=== PATIENT | female | born 1925 | race Caucasian/White ===

== ENCOUNTER 2016-11-05 16:34 | Inpatient (IN) ==
[2016-11-05] MEDS ORDERED: NUBAIN IV ONE (19:11)
[2016-11-05 19:27] LABS: BE 1.9 mmoll (-3.0-3.0); BLOOD TYPE ARTERIAL; DRAW SITE R BRACHIAL; METHB 0.6 % (0.0-1.5); O2(CT) 14.8 mL/dL (15.0-23.0); PCO2(98.6) 20 mmHg (35-45); PO2(98.6) 105 mmHg (60-100); SAMPLE BLOOD; SAO2 97.7 % (95.0-100.0); THB 10.8 g/dL (11.5-17.4)
[2016-11-05 19:30] LABS: MODALITY ROOM AIR; pH(98.6) 7.64 (7.35-7.45)
[2016-11-05 20:29] LABS: ALBUMIN 3.4 g/dL (3.5-5.0); POTASSIUM 4.3 mmol/L (3.5-5.1); TOTAL BILIRUBIN 0.7 mg/dL (0.20-1.00); TOTAL PROTEIN 6.6 g/dL (6.3-8.3)
--- NOTE | 2016-11-05 21:57 | HISTORY AND PHYSICAL ---
CHIEF COMPLAINT: Right-sided chest wall pain since last week and now swelling of left leg. HISTORY OF PRESENT ILLNESS: She is an 89-year-old, white female, was evaluated in my office last week for right sided chest wall pain. Got better with the Toradol. Now, she returned to the office today with left leg swelling and right-sided chest pain. Left leg is obviously swollen more than the right side. She had a history of injury 2 weeks ago and suspicious for DVT and thromboembolism. D-dimer was positive. Unfortunately, BUN and creatinine was high, unable to do CT angiogram tonight. I will go ahead and start some IV fluids and empirically started on Lovenox and pain control with Nubain. She is extremely tachycardic, hypoxic. ABG showed respiratory alkalosis without hypoxemia. After the creatinine comes back normal, we will attempt a CT pulmonary angiogram versus CT scan in the morning along with venous Dopplers in the left leg. As a result, hospital admission was warranted. PAST MEDICAL HISTORY: Paroxysmal atrial fibrillation, chronic lower back pain. History of gallstones with choledocholithiasis with stricture, status post ERCP and stent by Dr. Fiore. Hyperlipidemia, hypothyroidism, pyloric stenosis. Packs to the nasal bones, left frontal hemorrhage due to trauma of the Coumadin. History of subclavian syndrome. PAST SURGICAL HISTORY: Thyroid surgery, appendectomy, cholecystectomy, complete hysterectomy, bilateral cataract surgery. Bilateral bunionectomy, right ear tympanoplasty, and ERCP with stent. Right knee replacement. 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 Alonso. MEDICATIONS: Metoprolol 50 p.o. b.i.d., Tessalon 200 mg daily, Pravachol 40 daily. Hyzaar 50/12.5 daily, Synthroid 50 mcg daily. Lasix 40 mg Wednesday, Wednesday, Wednesday. Plavix 75 daily, probiotics as needed. [place] 7.5 daily. Restoril 15 daily. ALLERGIES: Not known. SOCIAL HISTORY: since 2014. Lives in [place]. No smoking. No alcohol. FAMILY HISTORY: Father of stomach cancer at 89. Mom of [place] at 89. HEALTH MAINTENANCE: Flu vaccine 2013. Pneumococcal 2011. Mammography 2012. Colonoscopy is declined. REVIEW OF SYSTEMS: HEENT: No headache. No vision problem. No earache. No sore throat. Neck: No goiter. No lymphadenopathy. No bruit. Cardiopulmonary: Right-sided chest pain on the back side. Respiratory: No shortness of breath, PND, orthopnea. GI: No nausea, vomiting, abdominal pain. : No history of hesitancy, frequency. Extremities: History of fall and swelling of left leg. Neurologic: No seizures, no weakness, no focal symptoms. PHYSICAL EXAMINATION: VITAL SIGNS: Stable. Tachycardic. Blood pressure is slightly high. 5 feet 3 inches, 142 pounds. HEENT: Atraumatic, normocephalic. Pupils equal, react to light. TMs are normal. Nose and throat within normal limits. NECK: Supple. No lymphadenopathy. No goiter. CHEST: Bilateral air entry. No rales, no wheezing. HEART: Sounds are tachycardic. BREASTS: Exam deferred. ABDOMEN: Belly is soft, nontender. Good bowel sounds. Median lower abdominal scar present. EXTREMITIES: Left leg is slightly swollen. Positive Homans sign. No signs of gangrene. Scars present on the right knee. NEURO EXAM: No obvious deficits noted. INVESTIGATIONS: CBC: Sedimentation rate is high. D-dimer is positive. ABG: pH is 7.64, pCO2 of 20, pO2 105. SMA-7 is normal except BUN 38, creatinine 1.6. ProBNP 3000 and cardiac enzymes were negative. In my office, the thoracic spine is unremarkable. Pacemaker device present. Calcifications noted in the abdominal aorta, status post stent in the biliary system. ASSESSMENT AND PLAN: 1. An 89-year-old, white female, admitted to the hospital with right-sided chest pain, left leg swelling, positive D-dimer. Suspicious for venous thromboembolism. Plan is venous Dopplers, CT pulmonary angiogram. 2. Azotemia. Hold Lasix, IV fluids. Follow up on SMA-7. 3. Empirical treatment with Lovenox twice daily. 4. Pain control with Nubain. 5. Gastrointestinal prophylaxis with IV Protonix. 6. Paroxysmal atrial fibrillation. On metoprolol 50 daily, Pacerone 200 daily. 7. Status post pacemaker. Warfarin was discontinued because of left frontal hemorrhage.. 8. Subclavian syndrome on the left side stable. 9. Biliary stricture, status post stent, ERCP. 10. History of pyloric stenosis, status post dilatation by Dr. Fiore. 11. Status post right knee replacement by Dr. Bennett. 12. Hypothyroidism, on Synthroid. 13. Hyperlipidemia, on pravastatin. 14. Chronic insomnia on temazepam. We will follow up on the pending laboratory workup based on the CT and venous Dopplers. Further recommendations will be followed. cc: Ben Kay MD
[2016-11-05] MEDS: SODIUM CHLORIDE 0.9% INJ SCH (22:10)
[2016-11-05] MEDS: PROTONIX IV SCH (22:10)
[2016-11-05] MEDS: NS 1,000 ML IV SCH (22:10)
[2016-11-05] MEDS: LOVENOX SUBQ SCH (22:10)
[2016-11-05] MEDS: NUBAIN IV PRN (23:13)
[2016-11-06 07:12] LABS: MANUAL DIFF NEEDED? NO
[2016-11-06 07:18] LABS: BASO% 0.1 % (0.0-0.8); EOS# 0.08 X1000 (0.0-0.7); HEMATOCRIT 33.4 % (37.0-47.0); HEMOGLOBIN 10.2 g/dL (12.0-16.0); IMM GRAN# 0.07 X1000 (0.0-0.04); IMM GRAN% 0.9 % (0.0-0.5); LYMPH# 3.43 X1000 (1.2-3.4); LYMPH% 44.3 % (20.5-51.1); MCH 27.2 PG (27-31); MCHC 30.5 g/dL (33-37); MCV 89.1 FL (81-99); MONO# 0.64 X1000 (0.11-0.59); MONO% 8.3 % (1.7-9.3); MPV 10.4 FL (7.4-10.4); NEUT% 45.4 % (42.2-75.2); PLT 269 X1000 (130-400); RBC 3.75 XMIL (4.2-5.4)
--- NOTE | 2016-11-06 07:19 | EKG Report ---
Test Performed on : 11/06/2016 06:55:20 AM Test Reason : cp Blood Pressure : / mmHG Vent. Rate : 097 BPM Atrial Rate : 078 BPM P-R Int : 000 ms QRS Dur : 098 ms QT Int : 384 ms P-R-T Axes : 000 011 -47 degrees QTc Int : 487 ms Atrial fibrillation. Nonspecific ST and T wave abnormality Abnormal ECG When compared with ECG of 10-MAR-2014 05:57, Atrial fibrillation. has replaced Atrial flutter. Incomplete right bundle branch block is no longer present Borderline criteria for Anterior infarct are no longer present Confirmed by Naif Banda MD ([id number]) on 11/06/2016 7:59:09 AM
[2016-11-06 07:20] LABS: INR 1.07; PROTIME 11.3 Seconds (9.2-11.7)
[2016-11-06 07:37] LABS: CALCIUM 8.6 mg/dL (8.8-10.2); POTASSIUM 4.3 mmol/L (3.5-5.1)
[2016-11-06] MEDS: CULTURELLE PO SCH (10:02)
[2016-11-06] MEDS: CORDARONE PO SCH (10:02)
[2016-11-06] MEDS: LOPRESSOR PO SCH ×2 (10:02→20:11)
[2016-11-06] MEDS: SYNTHROID PO SCH (10:03)
[2016-11-06] MEDS: LOVENOX SUBQ SCH (10:03)
[2016-11-06] MEDS: PLAVIX PO SCH (10:03)
[2016-11-06] MEDS: ZOSYN 2.25 GM/NS 2.25 GM/50 ML IVPB IV SCH ×3 (10:03→20:09)
[2016-11-06] MEDS: NS 1,000 ML IV SCH ×2 (10:04→20:10)
[2016-11-06] MEDS: NUBAIN IV PRN ×2 (10:06→20:18)
--- NOTE | 2016-11-06 11:46 | Diag Imaging Result Doc PS360 ---
EXAM: LUNG SCAN / VQ INDICATION: SOB TECHNIQUE: 39.8 mCi of aerosolized technetium 99 DTPA was administered for the ventilation portion of the scan. 6.1 mCi of technetium 99 MAA was administered intravenously for the perfusion portion of the scan. COMPARISON: None. FINDINGS: Attenuation due to the patient's cardiomegaly is causing a matched defect at the left lower lung zone. No other matched or unmatched perfusion defects are identified. The ventilation portion of the scan is essentially unremarkable. IMPRESSION: Low probability of pulmonary embolism. Electronically signed by Ruslan Otero 11/06/2016 11:44 AM
--- NOTE | 2016-11-06 11:59 | Diag Imaging Result Doc PS360 ---
EXAM: CHEST-2 VIEWS INDICATION: V-Q TECHNIQUE: 2 views COMPARISON: 12/25/2015 FINDINGS: The lungs are grossly clear. There is no definite pleural fluid collection. The heart is prominent similar to the previous study. There is a stable left-sided pacemaker. Central vasculature is unremarkable. IMPRESSION: Cardiomegaly. No definite acute pathology. Electronically signed by Ruslan Otero 11/06/2016 11:57 AM
--- NOTE | 2016-11-06 19:23 | PROGRESS NOTE ---
DATE: 11/06/2016 INTERVAL HISTORY: Patient's pain on the right side of the chest is better. No shortness of breath. Left leg is swollen. Venous Doppler was negative. Slight redness noted today. REVIEW OF SYSTEMS: No chest pain, shortness of breath.GI: No nausea, vomiting, abdominal pain. PHYSICAL EXAMINATION: Vital Signs: Stable, afebrile. General: The patient is not in respiratory distress. HEENT: Within normal limits. Neck: Supple. Chest: Clear to auscultation. Heart: Sounds are regular. Abdomen: Belly is soft, nontender. Good bowel sounds. Extremities: Left leg is swollen more than the right side. Positive Homans sign. INVESTIGATIONS: Positive D-dimer. Venous Dopplers were negative for DVT in the left leg consistent with cellulitis. Chest x-ray: Cardiomegaly with pacemaker. VQ scan was negative. LABS: CBC: White cell count 7.7, hematocrit 38, platelet 269. ESR is high. SMA-7: BUN 37, creatinine 1.5. Cardiac enzymes were negative. ASSESSMENT AND PLAN: 1. Azotemia. Continue IV hydration. Decrease IV fluids 50 mL an hour. If the creatinine is normal consider CT pulmonary angiogram. 2. Left leg swelled up. Venous Dopplers were negative. IV antibiotics. 3. Physical therapy. Out of the bed. 4. Reconcile home medications. Discussed the plan of the care. LEVEL OF DOCUMENTATION: 25 minutes. cc: Ben Kay MD
[2016-11-06] MEDS: SODIUM CHLORIDE 0.9% INJ SCH (20:11)
[2016-11-06] MEDS: PRAVACHOL PO SCH (20:11)
[2016-11-06] MEDS: PROTONIX IV SCH (20:15)
[2016-11-06] MEDS ORDERED: LOVENOX SUBQ SCH (21:00)
[2016-11-07] MEDS: NUBAIN IV PRN ×2 (00:21→23:34)
[2016-11-07] MEDS: ZOSYN 2.25 GM/NS 2.25 GM/50 ML IVPB IV SCH ×4 (02:09→19:56)
[2016-11-07 06:25] LABS: CALCIUM 8.8 mg/dL (8.8-10.2); POTASSIUM 4.7 mmol/L (3.5-5.1)
[2016-11-07] MEDS: SYNTHROID PO SCH (08:34)
[2016-11-07] MEDS: CULTURELLE PO SCH (08:34)
[2016-11-07] MEDS: CORDARONE PO SCH (08:34)
[2016-11-07] MEDS: LOPRESSOR PO SCH ×2 (08:35→20:00)
[2016-11-07] MEDS: PLAVIX PO SCH (08:36)
--- NOTE | 2016-11-07 09:51 | PROGRESS NOTE ---
DATE: 11/07/2016 SUBJECTIVE: The patient says her right scapular discomfort is much better. She did not really consider this as chest pain and says that it has been there before and comes and goes. She still has swelling in her left lower extremity but says that is even better. Her Doppler flow studies were negative for clots and her V/Q scan was low probability for blood clots in the lungs. She had no shortness of breath with this. I felt like this was most likely just a cellulitis. OBJECTIVE: Vital Signs: Blood pressure 124/63, respirations 16, pulse 77, temperature 97.7 degrees. HEENT: She is normocephalic intact PERRLA. Throat clear. Lungs: Clear to auscultation and percussion without rhonchi, rales, or wheezes. Heart: Regular rate and rhythm without murmurs, gallops, or friction rubs. Abdomen: Soft. Active bowel sounds without organomegaly or tenderness. Left lower extremity is swollen, most consistent with cellulitis. Neurological: Intact grossly. PLAN: We will continue IV antibiotics. cc: MD Ben Fernandez Jr, MD
--- NOTE | 2016-11-07 12:33 | Extremity Venous Study ---
PROCEDURE NAME: Venous U/S Left Leg - 11/06/2016 REFERRING PHYSICIAN: Dr. Kay. INTERPRETING PHYSICIAN: Dr. Landa. MECHANICAL DESIGN ENGINEER: Taylor. The patient has edema in the left leg and chest pain. The left lower extremity is imaged. The common femoral, superficial femoral, deep femoral, popliteal, posterior tibial, peroneal, greater saphenous are imaged. The right common femoral vein is imaged for comparison purposes. Doppler is used to evaluate the veins for spontaneity, phasicity, respiratory excursion, distal augmentation. All veins are compressible. Slight refluxing on the common femoral vein on the left. INTERPRETATION: No evidence of deep or superficial venous thrombosis in the left lower extremity veins identified. Minimal reflux noted on the left common femoral vein. cc: MD Ben Rodas MD
[2016-11-07] MEDS: NS 1,000 ML IV SCH (18:25)
[2016-11-07] MEDS: SODIUM CHLORIDE 0.9% INJ SCH (20:00)
[2016-11-07] MEDS: PRAVACHOL PO SCH (20:00)
[2016-11-07] MEDS: LOVENOX SUBQ SCH (20:02)
[2016-11-07] MEDS: PROTONIX IV SCH ×2 (20:05→21:24)
[2016-11-08] MEDS: ZOSYN 2.25 GM/NS 2.25 GM/50 ML IVPB IV SCH ×4 (01:24→19:54)
[2016-11-08 06:34] LABS: BASO% 0.2 % (0.0-0.8); EOS# 0.08 X1000 (0.0-0.7); EOS% 0.9 % (0.0-10.0); HEMATOCRIT 33.5 % (37.0-47.0); HEMOGLOBIN 9.9 g/dL (12.0-16.0); IMM GRAN# 0.04 X1000 (0.0-0.04); IMM GRAN% 0.4 % (0.0-0.5); LYMPH# 3.93 X1000 (1.2-3.4); LYMPH% 43.5 % (20.5-51.1); MANUAL DIFF NEEDED? YES; MCH 26.8 PG (27-31); MCHC 29.6 g/dL (33-37); MCV 90.5 FL (81-99); MONO# 1.17 X1000 (0.11-0.59); MPV 10.3 FL (7.4-10.4); PLT 238 X1000 (130-400)
[2016-11-08 06:37] LABS: CALCIUM 8.3 mg/dL (8.8-10.2); POTASSIUM 4.8 mmol/L (3.5-5.1)
[2016-11-08 07:22] LABS: LYMPHS 36 % (21-51); MONO 10 % (1-9)
[2016-11-08] MEDS: CULTURELLE PO SCH (08:01)
[2016-11-08] MEDS: CORDARONE PO SCH (08:01)
[2016-11-08] MEDS: PLAVIX PO SCH (08:01)
[2016-11-08] MEDS: LOPRESSOR PO SCH ×2 (08:01→20:00)
[2016-11-08] MEDS: SYNTHROID PO SCH (08:01)
[2016-11-08] MEDS: NS 1,000 ML IV SCH (10:11)
[2016-11-08] MEDS ORDERED: DULCOLAX PR ONE (10:57)
[2016-11-08] MEDS: MIRALAX PO SCH (11:11)
--- NOTE | 2016-11-08 11:51 | PROGRESS NOTE ---
DATE: 11/08/2016 SUBJECTIVE: The patient says she is feeling better but has not had a bowel movement in 4 or 5 days. OBJECTIVE: Vital Signs: Blood pressure is 143/54, respirations 16, pulse 77, temperature 97.8 degrees Fahrenheit. HEENT: She is normocephalic. EOMs intact. PERRLA. Throat clear. Lungs: Clear to auscultation and percussion without rhonchi, rales, or wheezes. Heart: Regular rate rhythm without murmurs, gallops, or friction rubs. Abdomen: Soft. Active bowel sounds. No organomegaly or tenderness. Extremities: Swelling of the left lower extremity seems to be going down a little bit. ASSESSMENT: 1. Cellulitis of left lower extremity. 2. Constipation. PLAN: Continue IV antibiotics. We will get her something for the constipation. cc: MD Ben Fernandez Jr, MD
[2016-11-08] MEDS: SODIUM CHLORIDE 0.9% INJ SCH (20:00)
[2016-11-08] MEDS: PRAVACHOL PO SCH (20:00)
[2016-11-08] MEDS: LOVENOX SUBQ SCH (20:00)
[2016-11-08] MEDS: PROTONIX IV SCH ×2 (20:11→20:36)
[2016-11-09] MEDS: ZOSYN 2.25 GM/NS 2.25 GM/50 ML IVPB IV SCH ×4 (02:25→21:00)
[2016-11-09] MEDS: NS 1,000 ML IV SCH (06:08)
[2016-11-09 06:40] LABS: MANUAL DIFF NEEDED? NO
[2016-11-09 06:46] LABS: BASO% 0.3 % (0.0-0.8); EOS# 0.11 X1000 (0.0-0.7); EOS% 1.4 % (0.0-10.0); HEMATOCRIT 32.1 % (37.0-47.0); HEMOGLOBIN 9.4 g/dL (12.0-16.0); IMM GRAN# 0.04 X1000 (0.0-0.04); IMM GRAN% 0.5 % (0.0-0.5); LYMPH# 3.44 X1000 (1.2-3.4); LYMPH% 44.6 % (20.5-51.1); MCH 26.6 PG (27-31); MCHC 29.3 g/dL (33-37); MCV 90.7 FL (81-99); MONO# 0.53 X1000 (0.11-0.59); MONO% 6.9 % (1.7-9.3); MPV 10.2 FL (7.4-10.4); NEUT% 46.3 % (42.2-75.2); PLT 255 X1000 (130-400); RBC 3.54 XMIL (4.2-5.4)
[2016-11-09] MEDS: CORDARONE PO SCH (08:26)
[2016-11-09] MEDS: LOPRESSOR PO SCH ×2 (08:27→21:01)
[2016-11-09] MEDS: PLAVIX PO SCH (08:27)
[2016-11-09] MEDS: SYNTHROID PO SCH (08:27)
[2016-11-09] MEDS: MIRALAX PO SCH (08:27)
[2016-11-09] MEDS: CULTURELLE PO SCH (08:27)
[2016-11-09] MEDS ORDERED: SALINE LOCK IV FLUID XX ONE (12:51)
[2016-11-09] MEDS: NUBAIN IV PRN (13:10)
--- NOTE | 2016-11-09 13:38 | PROGRESS NOTE ---
DATE: 11/09/2016 SUBJECTIVE: Patient says she is doing better overall. No specific complaints. OBJECTIVE: Vital Signs: Afebrile. Pulse 74, respiration 18, blood pressure 134/61, O2 saturation on room air 100%. CV: Irregularly irregular. Lungs: CTA. Abdomen: Nontender. Extremities: There is trace lower extremity edema on the left. No calf tenderness or cord. LABORATORIES: Show white count of 7.7, hemoglobin 9.4, platelets 255,000, sodium 139, potassium 4.8, chloride 105, CO2 21, BUN 26, creatinine 1.2. ASSESSMENT: 1. Cellulitis left lower extremity. 2. Constipation, improved with bowel movements x2. 3. Paroxysmal atrial fibrillation. 4. Hypothyroidism. PLAN: Continue IV Zosyn. Continue MiraLAX daily. Continue Plavix, amiodarone. Will discontinue IVF. Possible discharge tomorrow if she does well. cc: MD Ben Polanco MD
[2016-11-09] MEDS: PRAVACHOL PO SCH (21:01)
[2016-11-09] MEDS: SODIUM CHLORIDE 0.9% INJ SCH (21:01)
[2016-11-09] MEDS: PROTONIX IV SCH (21:01)
[2016-11-09] MEDS: LOVENOX SUBQ SCH (21:01)
[2016-11-10] MEDS: ZOSYN 2.25 GM/NS 2.25 GM/50 ML IVPB IV SCH ×2 (02:30→07:50)
[2016-11-10 05:59] LABS: MANUAL DIFF NEEDED? NO
[2016-11-10 06:11] LABS: BASO% 0.3 % (0.0-0.8); EOS# 0.14 X1000 (0.0-0.7); EOS% 1.6 % (0.0-10.0); HEMATOCRIT 33.5 % (37.0-47.0); HEMOGLOBIN 9.8 g/dL (12.0-16.0); IMM GRAN# 0.07 X1000 (0.0-0.04); IMM GRAN% 0.8 % (0.0-0.5); LYMPH# 3.89 X1000 (1.2-3.4); LYMPH% 43.2 % (20.5-51.1); MCH 26.6 PG (27-31); MCHC 29.3 g/dL (33-37); MONO# 0.81 X1000 (0.11-0.59); MPV 10.9 FL (7.4-10.4); NEUT% 45.1 % (42.2-75.2); PLT 256 X1000 (130-400); RBC 3.68 XMIL (4.2-5.4)
[2016-11-10 07:28] VITALS: BP 154/79
[2016-11-10] MEDS: LOPRESSOR PO SCH (07:59)
[2016-11-10] MEDS: CORDARONE PO SCH (07:59)
[2016-11-10] MEDS: CULTURELLE PO SCH (07:59)
[2016-11-10] MEDS: MIRALAX PO SCH (07:59)
[2016-11-10] MEDS: SYNTHROID PO SCH (08:00)
[2016-11-10] MEDS: PLAVIX PO SCH (08:00)
--- NOTE | 2016-11-11 09:05 | DISCHARGE SUMMARY ---
ADMISSION DATE: 11/05/2016 DISCHARGE DATE: 11/10/2016 DISCHARGING DIAGNOSES: 1. Left leg cellulitis. 2. Right-sided chest wall pain presumed to be musculoskeletal. 3. Paroxysmal atrial fibrillation chronic lower back pain. 4. History of biliary stricture status post endoscopic retrograde cholangiopancreatography and stent. 5. Hyperlipidemia. 6. Hypothyroidism. 7. Pyloric stenosis, stable. 8. History of subclavian syndrome. BRIEF HISTORY: Please see the H and P that was done on 11/05/2016. In brief, she is an 89-year- old white female admitted to the hospital with shortness of breath, right-sided chest pain associated with left leg swelling which is a discrepancy with the right leg. D- dimer was positive. High risk for possible thromboembolism. HOSPITAL COURSE: At the time of presentation BUN and creatinine were high. Unable to do CT pulmonary angiogram. The patient had venous Dopplers that were negative for deep vein thrombosis. VQ scan was negative. Clinical picture is not compatible with pulmonary embolism. She was given pain medicine for the right-sided chest wall pain which is improved. It looks like more musculoskeletal. Previous x-rays in my office, chest x-ray and x-ray of the T- spine were unremarkable. The patient was started on IV antibiotics and elevation and the left leg swelling is much improved. LABORATORIES: At the time of discharge as follows. CBC: White cell count 9, hematocrit 33, platelets 256,000. SMA 7: Sodium 139, potassium 4.8, chloride 105, BUN 26, creatinine 1.2. Chest x-ray stable. No acute chest pathology noted. V/Q scan is negative. DISCHARGE INSTRUCTIONS: Lopressor 50 p.o. b.i.d., Pacerone 200 daily, pravastatin 40 daily, Hyzaar 50/12.5 daily, Synthroid 50 mcg daily. Lasix 40 on Wednesday, Wednesday, Wednesday. Plavix 75 daily, Culturelle 1 tablet daily, albumin 875 p.o. b.i.d., and follow up in my office next week. cc: MD MARYANN Luevano
== END 2016-11-10 09:13 | disposition home or self-care (01) ==
LOC: DIRADM 16:34 → 3N 18:04
PROVIDERS: ADMIT Internal Medicine; ATTEND Internal Medicine

== ENCOUNTER 2016-11-22 10:55 | Inpatient (IN) ==
[~2016-11-22 10:55] MED LIST: QUELICIN ONE
[2016-11-22] MEDS ORDERED: NS 1,000 ML IV ONE ×2 (10:59→14:36)
[2016-11-22] MEDS ORDERED: NS 2,000 ML ONE (11:00)
[2016-11-22 11:09] LABS: MANUAL DIFF NEEDED? NO
[2016-11-22] MEDS ORDERED: NARCAN IV ONE (11:13)
[2016-11-22 11:14] LABS: BASO% 0.2 % (0.0-0.8); EOS# 0.14 X1000 (0.0-0.7); EOS% 1.6 % (0.0-10.0); HEMOGLOBIN 9.5 g/dL (12.0-16.0); IMM GRAN# 0.05 X1000 (0.0-0.04); IMM GRAN% 0.6 % (0.0-0.5); LYMPH# 2.98 X1000 (1.2-3.4); LYMPH% 33.6 % (20.5-51.1); MCH 25.8 PG (27-31); MCHC 29.7 g/dL (33-37); MONO# 0.87 X1000 (0.11-0.59); MONO% 9.8 % (1.7-9.3); MPV 11.1 FL (7.4-10.4); NEUT% 54.2 % (42.2-75.2); PLT 293 X1000 (130-400); RBC 3.68 XMIL (4.2-5.4)
[2016-11-22] MEDS ORDERED: LEVOPHED 8 MG in D5 1/2 NS 250 ML IV SCH ×2 (11:15→12:00)
[2016-11-22 11:20] LABS: ALLEN TEST NO; BE -3.6 mmoll (-3.0-3.0); BLOOD TYPE ARTERIAL; DRAW SITE R BRACHIAL; O2(CT) 9.7 mL/dL (15.0-23.0); PCO2(98.6) 26 mmHg (35-45); PO2(98.6) 95 mmHg (60-100); SAMPLE BLOOD; SAO2 100.3 % (95.0-100.0); THB 6.9 g/dL (11.5-17.4); pH(98.6) 7.48 (7.35-7.45)
[2016-11-22 11:21] LABS: MODALITY CANNULA
[2016-11-22 11:31] LABS: ALBUMIN 3.2 g/dL (3.5-5.0); CALCIUM 7.9 mg/dL (8.8-10.2); POTASSIUM 4.7 mmol/L (3.5-5.1); TOTAL BILIRUBIN 0.51 mg/dL (0.20-1.00); TOTAL PROTEIN 5.7 g/dL (6.3-8.3)
[2016-11-22 11:44] LABS: URINE MICRO REVIEW NEEDED? NO; URINE SOURCE CATH
[2016-11-22 11:47] LABS: BILIRUBIN URINE NEGATIVE (NEGATIVE); BLOOD URINE NEGATIVE (NEGATIVE); COLOR YELLOW; GLUCOSE URINE NEGATIVE (NEGATIVE); LEUKOCYTES URINE SMALL (NEGATIVE); NITRITE URINE NEGATIVE (NEGATIVE); PROTEIN URINE TRACE mg/dL (NEGATIVE); SP GRAVITY URINE 1.017; TURBIDITY URINE HAZY (CLEAR); UR EPITHELIAL CELLS <10 /HPF (<10); URINE BACTERIA 4+ /HPF; URINE CULTURE NEEDED? YES; URINE RBC <10 /HPF (<10); UROBILINOGEN URINE NORMAL (NORMAL)
[2016-11-22 11:54] LABS: INR 1.1; PROTIME 11.6 Seconds (9.2-11.7); PTT 27.7 Seconds (22.0-36.0)
--- NOTE | 2016-11-22 11:54 | Diag Imaging Result Doc PS360 ---
EXAM: CHEST-PORTABLE HISTORY: AMS TECHNIQUE: Portable upright AP COMPARISON: 11/06/2016 FINDINGS: Poor inspiratory effort. The heart is prominent. The vessels are not distended. No pneumonia. There is a left-sided pacemaker. IMPRESSION: Mild cardiomegaly Electronically signed by Kumar Doyle 11/22/2016 11:52 AM
[2016-11-22] MEDS: ROCEPHIN 2 GM/NS 2 GM/50 ML IVPB IV SCH (12:00)
--- NOTE | 2016-11-22 12:01 | PROVIDER DOCUMENTATION ---
This chart was entered by Gely Royal Scribe, acting as scribe for Ruslan Mora PA. HPI-General Adult - General Chief Complaint: Altered Mental Status Stated Complaint: LETHARGIC Time Seen by Provider: 11/22/16 10:57 Source: patient, EMS Unable to obtain history due to:: altered Allergies/Adverse Reactions: Patient Allergies Allergy/AdvReac Type Severity Reaction Status Date / Time morphine Allergy Intermediate SWELLING Verified 05/23/15 21:07 ciprofloxacin [From Cipro] Allergy Unknown Unknown Verified 05/23/15 21:07 ciprofloxacin HCl * Allergy Unknown Unknown Verified 05/23/15 21:07 [From Cipro] Home Medications: Home Medication List Medication Instructions Recorded Confirmed Last Taken Type Amiodarone HCl [Pacerone] 200 mg PO DAILY 04/05/12 11/05/16 11/05/16 09:00 History Metoprolol [Lopressor] 50 mg PO BID 04/05/12 07/05/15 07/04/15 History Levothyroxine Sodium 50 mcg PO QAM 03/09/14 11/05/16 11/05/16 09:00 History Losartan/Hydrochlorothiazide 1 each PO DAILY 03/09/14 11/05/16 11/05/16 09:00 History [Losartan-Hctz 50-12.5 mg Tab] PRAVAstatin [Pravachol] 40 mg PO QHS 03/09/14 11/05/16 11/05/16 09:00 History Furosemide 40 mg PO MOWEFR 04/07/14 11/05/16 07/03/15 History Clopidogrel Bisulfate [Plavix] 75 mg PO DAILY 05/07/15 11/05/16 11/05/16 09:00 History Lactobacillus Rhamnosus GG 1 each PO DAILY #30 capsule 07/09/15 Unknown Rx [Culturelle] Amoxicillin/Potassium Clav 1 each PO BID #14 tablet 11/10/16 Unknown Rx [Augmentin 875-125 Tablet] - History of Present Illness -Gen Adult Nature of Presenting Problems: 89 yo F presents to the ER with complaint of lethargy and hypotension. Pt was found in a room at [facility], lethargic and not answering questions. Upon arrival pt's BP is 50/30. Pt is moaning and muttering words, saying "she wants to go home". EMS reports no one at [facility] knew her history, pt has no family other than a sister. Onset/Duration: reports: unsure Review of Systems - Adult - REVIEW OF SYSTEMS - ADULT ROS:: unobtainable per condition Constitutional: denies: chills, fever Eyes: reports: no symptoms reported Ears, Nose, Mouth & Throat: reports: no symptoms reported Cardiovascular: reports: no symptoms reported Respiratory: denies: cough, wheezing Gastrointestinal: denies: diarrhea, vomiting Genitourinary: reports: no symptoms reported Musculoskeletal: reports: no symptoms reported Integumentary: reports: no symptoms reported Neurological: reports: no symptoms reported Psychiatric: reports: no symptoms reported Endocrine: reports: no symptoms reported Hematologic/Lymphatic: reports: no symptoms reported Allergic/Immunologic: reports: no symptoms reported All Other Systems: Reviewed and Negative Past History - Adult - PAST MEDICAL HISTORY-ADULT Review of Records: reports: Nursing Assessment Review, Medications Reviewed Cardiovascular: reports: A-Fib, HTN Musculoskeletal: reports: arthritis Endocrine/Immune: reports: thyroid disorder - PRIOR SURGERIES/PROCEDURES Surgical/Procedure History: reports: appendectomy, cholecystectomy, tonsillectomy, joint replacement - IMMUNIZATION STATUS Childhood Immunizations: See Nurse Assessment Flu Vaccine: See Nurse Assessment Physical Exam-General - PHYSICAL EXAM-ADULT Initial Vital Signs Reviewed: Yes - CONSTITUTIONAL General Appearance: lethargic, slow to respond - EYES Eyes: pink conjunctivae, other (pinpoint pupils). negative: PERRL/EOMI - HEAD, EARS, NOSE, MOUTH & THROAT HENMT: normocephalic/atraumatic, normal ENT inspection - NECK Neck: supple, normal inspection - RESPIRATORY Respiratory: lungs clear, no respiratory distress, no accessory muscle use - CARDIOVASCULAR Cardiovascular: normal peripheral pulses, regular rate, rhythm - GASTROINTESTINAL (ABDOMEN) Abdominal Exam: soft, tenderness (mild, suprapubic) - MUSCULOSKELETAL Extremity: normal range of motion, normal inspection Peripheral Pulses: radial (R): 2+, radial (L): 2+, carotid (R): 2+, carotid (L) : 2+, femoral (R): 2+, femoral (L): 2+, dorsalis-pedis (R): 2+, dorsalis-pedis ( L): 2+ - SKIN Integumentary: normal color, warm/dry Progress - PLAN OF CARE/RESULTS Progress/Plan/Lab Results: Orders Category Date Time Status Cardiac Monitoring DIRECTED Care 11/22/16 10:57 Active Finger Stick Blood Sugar (ED) DIRECTED Care 11/22/16 10:57 Active Oxygen Therapy- ED Nursing DIRECTED Care 11/22/16 10:57 Active Saline Loc NOW Care 11/22/16 10:57 Active CHEST-PORTABLE [RAD] Stat Exams 11/22/16 10:57 Ordered HEAD W/O CONTRAST [CT] Stat Exams 11/22/16 10:58 Ordered ABG [RESP] Routine Lab 11/22/16 10:57 Ordered ALCOHOL BLOOD Stat Lab 11/22/16 11:00 Received CBC WITH ELECTRONIC DIFF [HEME] Stat Lab 11/22/16 11:00 Received CK PROFILE [SP CHEM] Stat Lab 11/22/16 11:00 Received COMPREHENSIVE METABOLIC PANEL [CHEM] Stat Lab 11/22/16 11:00 Received LACTATE, PLASMA [CHEM] Stat Lab 11/22/16 10:57 Uncollected PROTIME WITH INR [COAG] Stat Lab 11/22/16 11:03 Ordered PTT [COAG] Stat Lab 11/22/16 11:03 Ordered TROPONIN T Stat Lab 11/22/16 11:00 Received URINALYSIS W/POSS RFLX CULT-1 [URINALYSIS] Stat Lab 11/22/16 10:57 Uncollected URINE DRUG SCREEN Stat Lab 11/22/16 10:57 Uncollected 0.9% Sodium Chloride Inj [Ns] 1,000 ml Med 11/22/16 11:00 Discontinued .ROUTE As Directed 0.9% Sodium Chloride Inj [Ns] 1,000 ml Med 11/22/16 10:59 Active IV 999 mls/hr Dextrose 5%-0.45% NaCl Inj [D5 1/2 Ns] 250 ml Med 11/22/16 12:00 Active Norepinephrine [Levophed] 8 mg IV As Directed Succinylcholine [Quelicin] Med 11/22/16 10:51 Discontinued 200 mg .ROUTE .STK-MED ONE Pulse Oximetry Stat Oth 11/22/16 10:57 Active EKG [EKG] Stat Ther 11/22/16 10:57 Ordered 1110 - Limited bedside ultrasound performed by Ruslan Mora showed low EF and IVC collapsed Result Diagrams: 11/22/16 11:00 11/22/16 11:00 - REASSESSMENT Reassessment #1 Time Reassessed: 13:27 (Pt blood pressure is 114/84. She is more responsive. States she remembers going to [facility] this morning but does not remember anything after arriving at [facility]. CT scans pending. Plan to admit after radiology reads CT.) - EKG 1 Time of EKG reading by physician:: 11:01 EKG Read and Signed by:: Belkis Stokes EKG Interpretation (*Must complete 3 of following elements*): Abnormal Rate: 67 Rhythm: a-fib with frequent ventricular paced complexes [place]: normal QRS: normal MN Interval: normal ST Wave: non-specific ST changes - XRAY 1 XRAY Study: Chest Impression: Abnormal (mild cardiomegaly, per radiologist) - CT/MRI 1 CT Study: Head Impression: Normal (no hemorrhage, mild atrophy, chronic L sphenoid sinusitis. Per radiologist) 2 CT Study: Abdomen, Pelvis, Thorax Impression: Abnormal (cardiomegaly with mild pulmonary edema and tiny effusions. cholecystectomy with biliary stent. prominent arterosclerosis. constipation. diverticulosis. hysterectomy. left ovarian cyst. per radiologist) - CONSULTS/PCP/HOSPITALIST Notification #1 *Consult/PCP/Hospitalist*: Dr. Kimble (house calls nurse practitioner for Dr. Kay) Time Discussed: 14:30 (Write transition orders to the ICU. ) Departure - Departure Date of Disposition Decision: 11/22/16 Time of Disposition Decision: 14:31 DIAGNOSIS: Syncopal episodes Qualifiers: Syncope type: unspecified Qualified Code(s): R55 - Syncope and collapse Hypotension Qualifiers: Hypotension type: unspecified hypotension type Qualified Code(s): I95.9 - Hypotension, unspecified UTI (urinary tract infection) Qualifiers: Urinary tract infection type: site unspecified Hematuria presence: without hematuria Qualified Code(s): N39.0 - Urinary tract infection, site not specified Disposition: ADMITTED INPATIENT 09 Certified Medical Emergency: Emergent Condition: Stable Referrals and Follow-Ups: Oliva Kay MD [Primary Care Provider] - - Critical Care Note This patient required my direct & personal management of CC.: No Attestation - Physician/ FREDRICK Attestation Patient care was provided by Advanced Practice Provider:: Yes Advanced Practice Provider:: Ruslan Mora Advanced Practice Provider documentation review:: The Mid-level provider documentation, treatment plan and medical decision making was reviewed by the physician who agrees with all treatment and medical decision making by the MLP. The physician spent face to face time with patient:: Yes Advanced Practice Provider documentation review:: The physician spent face to face time with this patient and agrees with all MLP documentation, treatment, and medical decision making by the MLP. See provider notes for further information. This chart was documented by the indicated scribe, (Gely Royal Scribe) and accurately reflects the services I performed and decisions made by me, Ruslan Mora PA, as attested by the provider's signature.
[2016-11-22 12:06] LABS: UR AMPHETAMINES QUAL NONE DETECTED (NONE DETECT); UR BARBITUATES QUAL NONE DETECTED (NONE DETECT); UR BENZODIAZEPIN QUAL PRESUMPTIVE POSITIVE (NONE DETECT); UR CANNABINOIDS QUAL NONE DETECTED (NONE DETECT); UR COCAINE QUAL NONE DETECTED (NONE DETECT); UR METHADONE QUAL NONE DETECTED (NONE DETECT); UR OPIATES QUAL NONE DETECTED (NONE DETECT); UR OXYCODONE QUAL PRESUMPTIVE POSITIVE (NONE DETECT); UR PCP QUAL NONE DETECTED (NONE DETECT)
[2016-11-22] MEDS ORDERED: ROCEPHIN ONE (12:11)
--- NOTE | 2016-11-22 13:28 | Diag Imaging Result Doc PS360 ---
EXAM: HEAD W/O CONTRAST HISTORY: AMS TECHNIQUE: COMPARISON: 12/27/2014 FINDINGS: No parenchymal hemorrhage. No epidural or subdural hematoma. No subarachnoid hemorrhage. No mass identified on this noncontrasted exam. No hydrocephalus. Mild atrophy. Near-complete opacification of the left sphenoid sinus.. IMPRESSION: No hemorrhage. Mild atrophy. Chronic left sphenoid sinusitis. Electronically signed by Kumar Doyle 11/22/2016 1:25 PM
--- NOTE | 2016-11-22 13:39 | Diag Imaging Result Doc PS360 ---
EXAM: THORAX/ABDOMEN/PELVIS W/O CONT HISTORY: CP/ABD pain/AMS TECHNIQUE: Dose reduction technique COMPARISON: Abdomen and pelvis is compared to 03/08/2014 FINDINGS: Chest: Trace pleural fluid. The heart is enlarged. No thoracic aortic aneurysm. Moderate atherosclerosis. There are small mediastinal lymph nodes. Patient has a left-sided pacemaker. Mild vascular distention. No consolidation. There is basilar atelectasis Abdomen and pelvis: A stent is found in the common bile duct. The gallbladder has been removed. There is at least mild to moderate intrahepatic biliary dilatation. Spleen is not enlarged. Normal noncontrasted pancreas. Normal adrenal glands. Kidneys are mildly atrophic. No renal stones. No hydronephrosis. Prominent atherosclerosis. No bowel obstruction. No inflammation about the cecum. There is stool throughout the colon. No abscess. No free air. The uterus is been removed. A Foy catheter has the urinary bladder decompressed. A 3 cm cyst arises from the left ovary. There are scattered diverticula. IMPRESSION: Chest: Cardiomegaly with mild pulmonary edema and tiny effusions Abdomen and pelvis: 1.Cholecystectomy with a biliary stent 2.Prominent atherosclerosis 3.Constipation 4.Diverticulosis 5.Hysterectomy 6.Left ovarian cyst Electronically signed by Kumar Doyle 11/22/2016 1:37 PM
[2016-11-22] MEDS ORDERED: NARCAN ONE (14:00)
[2016-11-22] MEDS ORDERED: NS ONE (14:00)
[2016-11-22] MEDS ORDERED: EPINEPHRINE SYRINGE ONE (14:00)
--- NOTE | 2016-11-22 18:44 | HISTORY AND PHYSICAL ---
HISTORY OF PRESENT ILLNESS: Ms. Andrade who is an 89-year-old white female with a known case of hypertension, was brought to the emergency room after she became very drowsy and passed out at [facility]. She almost had a syncopal episode. She was feeling fine this morning and suddenly became very drowsy in [facility]. When she came to the emergency room she was very hypotensive. Systolic blood pressure was 50. After initial management with IV fluids and a short course of Levophed her mental status improved. Blood pressure improved also. She is in and out of atrial fibrillation. She has a permanent pacemaker. She had hypertension. She denies having any definite heart attack. During her last admission she had small bowel obstruction. She had a biliary stent placed in by Dr. Fiore for biliary stricture. PAST MEDICAL HISTORY: She had a permanent pacemaker put in. Besides this, she had a hysterectomy. She had a total knee replacement on the left side which she he injured the right knee, is normal. She has history of urinary tract infection and during the last admission, according to her, she had an infection in the leg. She also had a ruptured appendix when she was 18 years old. Thereafter she had hysterectomy later on. She was in lot of pain with the scar tissue. SOCIAL HISTORY: She is a nonsmoker. She drank in early life. She was not an alcoholic. MEDICATIONS: Medications she takes at home include amiodarone 200 mg daily, amoxicillin with potassium clavulanate, Augmentin b.i.d. she has been on clopidogrel 75 mg daily, furosemide 40 mg daily, lactobacillus , levothyroxine, losartan hydrochloride 50/12.5, metoprolol, pravastatin 40 mg daily. REVIEW OF SYSTEMS: Really noncontributory except that she has fallen on the left knee. Review of systems otherwise unremarkable. PHYSICAL EXAMINATION: VITAL SIGNS: At present her vital signs reveal temperature normal, pulse 74 per minute, respiratory rate 22 per minute, blood pressure 134/87. HEENT: Head normocephalic. Pupils PERRLA. Fundus examination could not be done. ENT examination unremarkable. NECK: Supple. JVP normal. There is no evidence of lymphadenopathy, thyroid enlargement. EXTREMITIES: There is no evidence of pedal edema, calf tenderness, anemia, cyanosis, or clubbing. Pedal pulses well felt. BREASTS: Exam not done. CHEST: Normal inspection. Reveals a pacemaker generator in the left clavicle. LUNGS: Clear on auscultation. CARDIOVASCULAR: PMI in the normal position. Heart sounds normal. No murmur, gallop, or rub noted. ABDOMEN: Nondistended. Reveals a scar from previous surgery. No guarding, rigidity, free fluid, masses, or organomegaly. Bowel sounds normal. RECTAL: Deferred. ADVERTISING DIRECTOR: Higher functions: Patient is alert and oriented. Cranial nerves normal. Motor and sensory system examination unremarkable. Deep tendon reflexes normal. Plantars downgoing. Skull and spine examination normal for age. She has a lipoma in her mid dorsal area on the right side, interscapular area. There are no cerebellar signs or signs of meningeal irritation. LOCOMOTOR EXAM: Unremarkable. SKIN EXAM: Unremarkable except for swelling of the left knee. IMPRESSION AND PLAN: The patient became syncopal and very hypotensive when she came to the emergency room. She has a history of hypertension, sick sinus syndrome, and history of biliary stricture with a stent put in there. Had left knee replacement which the knee appears to be slightly injected and swollen. We will x-ray the knee. Continue the current management and watch her. Cultures have been done. Her CBC reveals a normal white count. Hemoglobin is 9.5. Blood gases are satisfactory. Chemistries normal except that her BUN is 59 and creatinine is 2.4, indicating dehydration and possibly mild renal failure. Plan to continue the IV fluids and repeat the lab data in the morning. cc: MD Ben Sharma MD
[2016-11-22] MEDS ORDERED: SODIUM CHLORIDE 0.9% INJ SCH (19:30)
--- NOTE | 2016-11-22 19:57 | Diag Imaging Result Doc PS360 ---
EXAM: KNEE 1-2 VIEWS-LEFT HISTORY: pain swelling TECHNIQUE: Two views COMPARISON: None. FINDINGS: There is been prior orthopedic replacement of the knee. No evidence of loosening. Prominent atherosclerosis. Deformity to the proximal fibula believed to be an old injury. IMPRESSION: No definite acute bony abnormality. Electronically signed by Kumar Doyle 11/22/2016 7:54 PM
[2016-11-22] MEDS: LOVENOX SUBQ SCH (20:30)
[2016-11-22] MEDS: PROTONIX IV SCH (20:30)
[2016-11-23 06:53] LABS: MANUAL DIFF NEEDED? NO
--- NOTE | 2016-11-23 07:07 | EKG Report ---
Test Performed on : 11/22/2016 11:01:01 AM Test Reason : AMS Blood Pressure : / mmHG Vent. Rate : 067 BPM Atrial Rate : 069 BPM P-R Int : 000 ms QRS Dur : 094 ms QT Int : 440 ms P-R-T Axes : 000 003 000 degrees QTc Int : 464 ms Atrial fibrillation. with frequent ventricular-paced complexes Nonspecific ST abnormality Abnormal ECG When compared with ECG of 06-NOV-2016 06:55, Electronic ventricular pacemaker has replaced Atrial fibrillation. Unconfirmed Result
[2016-11-23 07:13] LABS: BASO% 0.2 % (0.0-0.8); EOS# 0.15 X1000 (0.0-0.7); EOS% 2.4 % (0.0-10.0); HEMOGLOBIN 9.4 g/dL (12.0-16.0); IMM GRAN# 0.02 X1000 (0.0-0.04); IMM GRAN% 0.3 % (0.0-0.5); LYMPH% 50.4 % (20.5-51.1); MCH 25.7 PG (27-31); MCHC 29.4 g/dL (33-37); MCV 87.4 FL (81-99); MONO# 0.39 X1000 (0.11-0.59); MONO% 6.1 % (1.7-9.3); MPV 10.8 FL (7.4-10.4); NEUT% 40.6 % (42.2-75.2); PLT 254 X1000 (130-400); RBC 3.66 XMIL (4.2-5.4)
[2016-11-23 07:45] LABS: CALCIUM 7.8 mg/dL (8.8-10.2); POTASSIUM 4.3 mmol/L (3.5-5.1)
--- NOTE | 2016-11-23 09:45 | PROGRESS NOTE ---
DATE: 11/23/2016 ROOM: ICU 6. LEVEL OF DOCUMENTATION: Is 35 minutes. SUBJECTIVE: The chart was reviewed and patient has been admitted to the hospital with syncope while she was at [facility]. She was hypotensive, bradycardic. She had a pacemaker with intermittent atrial fibrillation. She is not a candidate for anticoagulation because of the previous head injury and subdural hematoma. She was recently discharged from the hospital with left leg cellulitis, swelling and right-sided chest pain. Further workup, VQ was negative. 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 Blood pressure is usually low. She was started on IV fluids and IV vasopressors. Patient is feeling better. REVIEW OF SYSTEMS: HEENT: No headache. No vision problem. No earache. No sore throat. Neck: No neck pain. Cardiopulmonary: No chest pain, shortness of breath, PND, orthopnea. GI: No nausea, vomiting, abdominal pain. Extremities: Swelling of feet is improving. No joint pains. PAST MEDICAL HISTORY, PAST SURGICAL HISTORY, MEDICINES: Were reviewed. PHYSICAL EXAMINATION: Vitals: She is afebrile. Vitals are now stable, 146/90 on 2 L of oxygen nasal cannula 100%. HEENT: Atraumatic, normocephalic. Pupils equal, react to light. Nose and throat within normal limits. Neck: Supple. No lymphadenopathy. JVD is normal. Chest: Bilateral air entry. Heart: Sounds are regular and distant. Abdomen: Belly is soft, nontender. Good bowel sounds. Extremities: No peripheral edema. Slightly rotated on the left side. Neurologic: Nonfocal. INVESTIGATIONS: CBC: White cell count 6.3, hematocrit 32, platelets 254. ABG: PH is 7.48, pCO2 of 26, pO2 of 95. SMA-7: Sodium 142, potassium 4.3, chloride 104, BUN 40, creatinine 1.6. Urinalysis positive for infection with gram-negative rods. ASSESSMENT: 1. Syncope due to hypotension. Etiology to be determined. 2. Acute kidney injury due to hypotension, improving. 3. Paroxysmal atrial fibrillation on Cordarone and Plavix. 4. Hypothyroidism on Synthroid. 5. Hyperlipidemia on Pravachol. 6. Left subclavian steal syndrome. Do not take the blood pressure on the left side. PLAN: 1. DVT prophylaxis with Lovenox. 2. GI prophylaxis with Protonix. 3. Check the orthostatic blood pressure. 4. Will transfer to the ICU in a stepdown unit and reconcile home medications. Please see the transfer orders. cc: eBn Kay MD
[2016-11-23] MEDS: ROCEPHIN 2 GM/NS 2 GM/50 ML IVPB IV SCH (12:02)
[2016-11-23] MEDS: PROTONIX IV SCH (21:01)
[2016-11-23] MEDS: CULTURELLE PO SCH (21:01)
[2016-11-23] MEDS: PRAVACHOL PO SCH (21:01)
[2016-11-23] MEDS: SYNTHROID PO SCH (21:01)
[2016-11-23] MEDS: PLAVIX PO SCH (21:01)
[2016-11-23] MEDS: LOVENOX SUBQ SCH (21:01)
[2016-11-23] MEDS: CORDARONE PO SCH (21:01)
[2016-11-24 06:57] LABS: HEMATOCRIT 33.2 % (37.0-47.0); HEMOGLOBIN 9.7 g/dL (12.0-16.0); MCH 25.9 PG (27-31); MCHC 29.2 g/dL (33-37); MCV 88.8 FL (81-99); MPV 10.4 FL (7.4-10.4); RBC 3.74 XMIL (4.2-5.4)
[2016-11-24 07:00] LABS: CALCIUM 8.1 mg/dL (8.8-10.2)
[2016-11-24] MEDS: CORDARONE PO SCH (08:50)
[2016-11-24] MEDS: SYNTHROID PO SCH (08:50)
[2016-11-24] MEDS: CULTURELLE PO SCH (08:50)
[2016-11-24] MEDS: PLAVIX PO SCH (08:50)
[2016-11-24] MEDS: ROCEPHIN 2 GM/NS 2 GM/50 ML IVPB IV SCH (13:07)
--- NOTE | 2016-11-24 18:08 | PROGRESS NOTE ---
DATE: 11/24/2016 SUBJECTIVE: Patient is out of the ICU this morning. She has a left subclavian artery stenosis. Will need to monitor blood pressure on the right side. The patient blood pressure is running high. No complaints other than insomnia. REVIEW OF SYSTEMS: None reported. EXAMINATION: Vital signs: She is afebrile. Blood pressure is 190/80, pulse is 95. HEENT: Within normal limits. Neck: Supple. No lymphadenopathy. Chest: Clear. Heart: Sounds are regular. Belly: Soft, nontender. Extremities: Decreased edema. INVESTIGATIONS: CBC. White cell count 6.6, hematocrit 33, platelets 252,000. SMA 7. Sodium 140, potassium 4, chloride 102, BUN 24, creatinine 1.3, glucose 107, calcium 8.1. Urinalysis is clear. ASSESSMENT AND PLAN: 1. Syncope etiology to be determined. Currently she is stable. 2. Acute kidney injury is improving off intravenous fluids. 3. Urinary tract infection. Urine cultures positive for gram-negative rods. Currently on intravenous Rocephin. Blood cultures were negative. 4. Deep vein thrombosis, gastrointestinal prophylaxis with Protonix, Lovenox respectively. 5. Orthostatic blood pressure. 6. Hypertension. Continue monitor blood pressures. Will start with Hyzaar and metoprolol and increase the activity and will follow up. 7. Atrial fibrillation on Cordarone and Plavix, unable to tolerate anticoagulation because of the previous subdural hematoma. LEVEL OF DOCUMENTATION: 25 minutes. cc: Ben Kay MD
[2016-11-24] MEDS ORDERED: AMBIEN PO ONE (19:24)
[2016-11-24] MEDS: PRAVACHOL PO SCH (19:56)
[2016-11-24] MEDS: LOPRESSOR PO SCH (19:56)
[2016-11-24] MEDS: LOVENOX SUBQ SCH (19:57)
[2016-11-24] MEDS: PROTONIX IV SCH (19:57)
[2016-11-24] MEDS: HYZAAR 50/12.5 MG PO SCH (21:54)
[2016-11-25] MEDS: LOPRESSOR PO SCH ×3 (02:03→22:46)
[2016-11-25] MEDS: PRAVACHOL PO SCH ×2 (02:03→22:46)
[2016-11-25] MEDS ORDERED: HYZAAR 50/12.5 MG PO SCH (09:00)
[2016-11-25] MEDS: CULTURELLE PO SCH (09:03)
[2016-11-25] MEDS: PLAVIX PO SCH (09:03)
[2016-11-25] MEDS: SYNTHROID PO SCH (09:03)
[2016-11-25] MEDS: HYZAAR 50/12.5 MG PO SCH (09:04)
[2016-11-25] MEDS: CORDARONE PO SCH (09:04)
[2016-11-25] MEDS: ROCEPHIN 2 GM/NS 2 GM/50 ML IVPB IV SCH (11:57)
[2016-11-25] MEDS ORDERED: AMBIEN PO PRN (19:28)
--- NOTE | 2016-11-25 19:56 | PROGRESS NOTE ---
DATE: 11/25/2016 SUBJECTIVE: The patient looks better and urine cultures grew Klebsiella sensitive to ceftriaxone. REVIEW OF SYSTEMS: None reported other than insomnia. Patient was given Ambien last night. OBJECTIVE: Vitals: Stable. HEENT: Within normal limits. Neck: Supple. No lymphadenopathy. Chest: Clear. Heart: Sounds are regular. Abdomen: Belly is soft, nontender. Good bowel sounds. No masses palpable. No peripheral edema. Neurologic: No neurological deficits. Urine cultures positive for Klebsiella. ASSESSMENT AND PLAN: 1. Urinary tract infection. Discontinue Foy, continue on IV ceftriaxone. 2. Insomnia. Increase the Ambien 10 mg at bedtime. 3. Hypotension is better. 4. Deep venous thrombosis prophylaxis with Lovenox. Continue to monitor orthostatic blood pressure. 5. Acute kidney injury improving. If she is stable next 48 hours, we will make attempt to discharge. LEVEL OF DOCUMENTATION: 25 minutes. cc: Ben Kay MD
--- NOTE | 2016-11-25 20:16 | Extremity Venous Study ---
PROCEDURE NAME: Venous U/S Left Leg - 11/22/2016 TEST: Left lower extremity venous duplex study. REFERRING PHYSICIAN: Melvin Kay MD READING PHYSICIAN: Bran Smith MD INVESTIGATOR INTERNAL REVENUE: Taylor INDICATION: Left leg cellulitis. FINDINGS: The deep and superficial veins of the left lower extremity were imaged throughout their course. All are compressible with forward flow. No thrombus is appreciated. INTERPRETATION: No evidence of deep or superficial venous thrombosis of the left lower extremity. cc: MD Rishi Pablo MD Jagan Reddy, MD
[2016-11-25] MEDS: PROTONIX IV SCH (22:46)
[2016-11-25] MEDS: LOVENOX SUBQ SCH (22:47)
[2016-11-26 07:40] VITALS: BP 159/84
[2016-11-26] MEDS: CORDARONE PO SCH (09:17)
[2016-11-26] MEDS: HYZAAR 50/12.5 MG PO SCH (09:17)
[2016-11-26] MEDS: SYNTHROID PO SCH (09:17)
[2016-11-26] MEDS: CULTURELLE PO SCH (09:17)
[2016-11-26] MEDS: LOPRESSOR PO SCH (09:17)
[2016-11-26] MEDS: PLAVIX PO SCH (09:17)
--- NOTE | 2016-11-27 17:54 | DISCHARGE SUMMARY ---
ADMISSION DATE: 11/22/2016 DISCHARGE DATE: 11/26/2016 DISCHARGING DIAGNOSIS: Near syncope due to hypotension with acute kidney injury. The etiology to be determined. SECONDARY DIAGNOSES: 1. Urinary tract infection due to Klebsiella sensitive to Macrobid. 2. Left subclavian artery stenosis. Please do no take blood pressure on the left side. 3. Paroxysmal atrial fibrillation. 4. History of biliary stricture status post stent. 5. Hyperlipidemia. 6. Hypothyroidism. 7. Pyloric stenosis stable. BRIEF HISTORY: Please see the H and P that was done by Dr. Verdugo. In brief she is an 89-year- old, white female, admitted to the hospital with near syncope, low blood pressure, acute kidney injury. Patient was admitted in ICU. Started on IV fluids, IV vasopressors and vasodepressor quickly weaned off. As I said please not take the blood pressure on the left side. During this hospital course rest of the workup was negative. Follow up hydration renal function test came back normal. She was moved out of ICU in a stable condition. She also given IV ceftriaxone for UTI, subsequently changed to the Macrobid. She is tolerating the diet very well. The patient is no longer orthostatic. She remains in atrial fibrillation. Not a candidate for anticoagulation due to subdural hematoma. LABORATORIES: At the time of discharge, as follows. CBC: White cell count 6.6, hematocrit 33, platelets 252,000. SMA 7: Sodium 140, potassium 4.0, chloride 102, BUN 24, creatinine 1.3, glucose 107, calcium 8.1. Venous Doppler study was negative. X-ray of the knee on 11/22 no definitive acute abnormality. CT head, chronic left sphenoid sinusitis. Mild atrophy. CT of the chest and the abdomen and pelvis, cardiomegaly, cholecystectomy with biliary stent, diverticulosis, hysterectomy, left ovarian cyst. DISCHARGE INSTRUCTIONS: Metoprolol 50 p.o. b.i.d., Pacerone 200 daily, pravastatin 40 daily. Hyzaar 50/12.5 daily, Synthroid 50 mcg daily, Lasix Wednesday, Wednesday, Wednesday as needed for swelling of feet. Plavix 75 daily, Culturelle 1 tablet daily. Macrobid 100 p.o. b.i.d. Follow up in my office in 10 days. cc: Ben Kay MD
== END 2016-11-26 10:10 | disposition home health service (06) ==
LOC: SUPCPDRO → ED 10:55 → ICU 15:09 → 3N 11-23 19:17
PROVIDERS: ADMIT Internal Medicine; ATTEND Internal Medicine

== ENCOUNTER 2016-12-16 10:31 | Inpatient (IN) ==
[2016-12-16] MEDS ORDERED: NS 1,000 ML ONE ×2 (10:33→12:28)
[2016-12-16] MEDS ORDERED: ASPIRIN PO STA (10:50)
[2016-12-16] MEDS ORDERED: NS 1,000 ML IV ONE ×3 (11:07→12:42)
[2016-12-16 11:21] LABS: MANUAL DIFF NEEDED? NO
[2016-12-16 11:22] LABS: BASO% 0.1 % (0.0-0.8); EOS# 0.14 X1000 (0.0-0.7); EOS% 1.5 % (0.0-10.0); HEMATOCRIT 21.8 % (37.0-47.0); HEMOGLOBIN 6.3 g/dL (12.0-16.0); IMM GRAN# 0.08 X1000 (0.0-0.04); IMM GRAN% 0.8 % (0.0-0.5); LYMPH# 3.83 X1000 (1.2-3.4); LYMPH% 40.4 % (20.5-51.1); MCH 24.1 PG (27-31); MCHC 28.9 g/dL (33-37); MCV 83.5 FL (81-99); MONO# 0.85 X1000 (0.11-0.59); MPV 11.2 FL (7.4-10.4); NEUT% 48.2 % (42.2-75.2); PLT 273 X1000 (130-400); RBC 2.61 XMIL (4.2-5.4)
[2016-12-16 11:26] LABS: INR 1.13
[2016-12-16 11:27] LABS: CALCIUM 7.3 mg/dL (8.8-10.2); POTASSIUM 3.7 mmol/L (3.5-5.1)
[2016-12-16 11:35] LABS: ALBUMIN 2.5 g/dL (3.5-5.0); CALCIUM 7.2 mg/dL (8.8-10.2); MAGNESIUM 1.7 mg/dL (1.5-2.7); POTASSIUM 3.7 mmol/L (3.5-5.1); TOTAL BILIRUBIN 0.5 mg/dL (0.20-1.00); TOTAL PROTEIN 3.8 g/dL (6.3-8.3)
--- NOTE | 2016-12-16 11:59 | EKG Report ---
Test Performed on : 12/16/2016 10:46:11 AM Test Reason : Chest Pain Blood Pressure : / mmHG Vent. Rate : 060 BPM Atrial Rate : 066 BPM P-R Int : 000 ms QRS Dur : 134 ms QT Int : 534 ms P-R-T Axes : 000 -70 094 degrees QTc Int : 534 ms Ventricular-paced rhythm Abnormal ECG When compared with ECG of 14-DEC-2016 10:44, Electronic ventricular pacemaker has replaced Atrial fibrillation. Vent. rate has decreased BY 29 BPM Unconfirmed Result
--- NOTE | 2016-12-16 12:12 | Diag Imaging Result Doc PS360 ---
HEAD W/O CONTRAST - 12/16/2016 INDICATION: syncope with head trauma TECHNIQUE: A CT dose reduction protocol was used. COMPARISON: 11/22/2016 FINDINGS: There is a tiny focus of left supraorbital soft tissue scalp swelling. The ventricles and sulci are normal in size and contour. No intracranial mass or hemorrhage. No skull fractures. Stable chronic sinusitis of the left sphenoid sinus. IMPRESSION: Tiny left periorbital scalp contusion. No intracranial injury. Electronically signed by Chava Hernandez 12/16/2016 12:10 PM
[2016-12-16] MEDS: LEVOPHED 8 MG in D5 1/2 NS 250 ML IV SCH ×2 (14:00→14:10)
--- NOTE | 2016-12-16 14:43 | PROVIDER DOCUMENTATION ---
This chart was entered by Saeed Horowitz Scribe, acting as scribe for Beltran Wylie MD. HPI-Syncope/Dizziness - General Chief Complaint: Syncope Stated Complaint: syncope Time Seen by Provider: 12/16/16 10:49 Source: family Unable to obtain history due to:: urgency Allergies/Adverse Reactions: Patient Allergies Allergy/AdvReac Type Severity Reaction Status Date / Time morphine Allergy Intermediate SWELLING Verified 12/16/16 11:16 ciprofloxacin [From Cipro] Allergy Unknown Unknown Verified 12/16/16 11:16 ciprofloxacin HCl * Allergy Unknown Unknown Verified 12/16/16 11:16 [From Cipro] Home Medications: Home Medication List Medication Instructions Recorded Confirmed Last Taken Type Amiodarone [Cordarone] 200 mg PO DAILY 12/16/16 12/16/16 Unknown History Celecoxib [Celebrex] 200 mg PO DAILY 12/16/16 12/16/16 Unknown History Clopidogrel Bisulfate [Plavix] 75 mg PO DAILY 12/16/16 12/16/16 Unknown History Furosemide 40 mg PO DAILY 12/16/16 12/16/16 Unknown History Levothyroxine [Synthroid] 50 microgm PO DAILY 12/16/16 12/16/16 Unknown History Losartan/Hydrochlorothiazide 1 tab PO DAILY 12/16/16 12/16/16 Unknown History [Losartan-Hctz 50-12.5 mg Tab] Nitrofurantoin [place]/Macrocryst 100 mg PO BID 12/16/16 12/16/16 12/15/16 20:00 History [Macrobid] PRAVAstatin [Pravachol] 40 mg PO DAILY 12/16/16 12/16/16 Unknown History Temazepam 15 mg PO DAILY 12/16/16 12/16/16 12/15/16 20:00 History Tizanidine HCl [Zanaflex] 4 mg PO DAILY 12/16/16 12/16/16 Unknown History - History of Present Illness-Syncope/Dizzy Nature of Presenting Problem: patient is a 89 y/o F that presents to the ER via EMS for syncope. Patient has had frequent falls recently. Seen 3 days ago in the ER for syncope and fall. Sent home. Family reports that patient has had frequent falls as of late. She has multiple bruises. No chest pain prior to syncope. Denies fever/chills, n/v/ d. Denies any rectal bleeding. Her systolic blood pressure per EMS was in the 50s, given 500 bolus of NS Prior Episodes: reports: single episode today Onset/Duration: reports: abrupt, this morning Timing: reports: improving Symptoms prior to episode: reports: none Context: reports: lost consciousness, became unresponsive Loss of Consciousness: brief (seconds) Location of injury. (If syncope resulted in an injury.): reports: none Current Symptoms: reports: weakness, lightheaded. denies: fever, breathing difficulty, abdominal pain, nausea Similar symptoms previously: reports: previous diagnosis, workup for same problem Recently Seen Here or By Another Healthcare Provider: Yes Review of Systems - Adult - REVIEW OF SYSTEMS - ADULT Constitutional: denies: chills, fever Eyes: reports: no symptoms reported Ears, Nose, Mouth & Throat: denies: ear discharge, ear pain, epistaxis, sinus problem, throat pain, throat swelling Cardiovascular: reports: syncope. denies: chest pain, palpitations Respiratory: denies: cough, shortness of breath, wheezing Gastrointestinal: denies: abdominal pain, nausea, vomiting Genitourinary: reports: no symptoms reported Musculoskeletal: reports: muscle weakness. denies: back pain, joint pain, neck pain Integumentary: reports: no symptoms reported Neurological: reports: syncope. denies: dizziness/vertigo, headache/migraines, seizure, slurred speech Psychiatric: reports: no symptoms reported Endocrine: reports: no symptoms reported Hematologic/Lymphatic: reports: no symptoms reported Allergic/Immunologic: reports: no symptoms reported All Other Systems: Reviewed and Negative Past History - Adult - PAST MEDICAL HISTORY-ADULT Review of Records: reports: Old Records Reviewed, Nursing Assessment Review, Medications Reviewed Cardiovascular: reports: A-Fib, HTN Musculoskeletal: reports: arthritis Endocrine/Immune: reports: thyroid disorder - PRIOR SURGERIES/PROCEDURES Surgical/Procedure History: reports: appendectomy, cholecystectomy, tonsillectomy, joint replacement - IMMUNIZATION STATUS Childhood Immunizations: See Nurse Assessment Flu Vaccine: See Nurse Assessment - FAMILY HISTORY Family History: reviewed, not pertinent - SOCIAL HISTORY Smoking: non-smoker Living Situation: family Physical Exam-General - PHYSICAL EXAM-ADULT Exam Limited by: patient condition Initial Vital Signs Reviewed: Yes - CONSTITUTIONAL General Appearance: moderate distress, lethargic, other (frail, ill appearing) - EYES Eyes: PERRL/EOMI, pink conjunctivae - HEAD, EARS, NOSE, MOUTH & THROAT HENMT: moist mucous membranes, normal ENT inspection - NECK Neck: full range of motion, normal inspection - RESPIRATORY Respiratory: no respiratory distress, no accessory muscle use, decreased breath sounds - CARDIOVASCULAR Cardiovascular: regular rate, rhythm, no JVD - GASTROINTESTINAL (ABDOMEN) Abdominal Exam: normal bowel sounds, non tender, soft - MUSCULOSKELETAL Extremity: no pedal edema, normal capillary refill, pelvis stable - SKIN Integumentary: warm/dry, ecchymosis (generalized body), other (skin tear) - NEUROLOGIC Neurologic: negative: facial droop, focal weakness, motor weakness - PSYCHIATRIC Psych/Mental Status: disoriented x 3 Progress - PLAN OF CARE/RESULTS Progress/Plan/Lab Results: Vital Signs - 8 hr 12/16/16 10:36 12/16/16 11:20 12/16/16 12:10 Temperature 97.7 F Pulse Rate 65 62 58 L Respiratory Rate 18 22 Blood Pressure 85/58 95/57 95/47 O2 Sat by Pulse Oximetry 100 100 100 12/16/16 12:15 12/16/16 12:20 12/16/16 12:38 Temperature Pulse Rate 63 63 64 Respiratory Rate 18 14 7 L Blood Pressure 89/50 89/50 81/39 O2 Sat by Pulse Oximetry 100 99 100 12/16/16 12:40 12/16/16 12:41 12/16/16 13:00 Temperature Pulse Rate 60 63 65 Respiratory Rate 18 12 13 Blood Pressure 78/37 81/39 73/43 O2 Sat by Pulse Oximetry 93 L 100 100 12/16/16 13:37 12/16/16 13:43 12/16/16 13:49 Temperature Pulse Rate 61 60 60 Respiratory Rate 18 16 18 Blood Pressure 67/49 81/50 75/52 O2 Sat by Pulse Oximetry 96 97 100 12/16/16 13:56 12/16/16 14:15 Temperature Pulse Rate 67 65 Respiratory Rate 12 24 Blood Pressure 76/53 117/62 O2 Sat by Pulse Oximetry 100 100 Laboratory Results - last 24 hr 12/16/16 12/16/16 12/16/16 10:45 10:45 10:45 WBC 9.49 RBC 2.61 L Hgb 6.3 L D Hct 21.8 L D MCV 83.5 MCH 24.1 L MCHC 28.9 L RDW Std Deviation 16.5 H Plt Count 273 MPV 11.2 H Immature Gran % (Auto) 0.8 H Neut % (Auto) 48.2 Lymph % (Auto) 40.4 [place] % (Auto) 9.0 Eos % (Auto) 1.5 Baso % (Auto) 0.1 Immature Gran # (Auto) 0.08 H Neut # (Auto) 4.58 Lymph # (Auto) 3.83 H [place] # (Auto) 0.85 H Eos # (Auto) 0.14 Baso # (Auto) 0.01 PT INR PTT (Actin FS) Sodium 137 138 Potassium 3.7 3.7 Chloride 102 103 Carbon Dioxide 24 L 24 L Anion Gap 11 11 BUN 36 H 36 H Creatinine 1.5 H 1.5 H Estimated GFR/1.73 m2 33 33 BUN/Creatinine Ratio 24 24 Glucose 136 H 136 H Calculated Osmolality 284 286 Calcium 7.3 L D 7.2 L Magnesium 1.7 Total Bilirubin 0.50 AST 10 ALT 7 L Alkaline Phosphatase 53 Creatine Kinase 31 Troponin T Zbv-[id number]-Dewfldckaab Pept Total Protein 3.8 L Albumin 2.5 L Globulin 1.3 Albumin/Globulin Ratio 1.9 Plasma Lactate Urine Source Blood Type Antibody Screen 12/16/16 12/16/16 12/16/16 10:45 10:45 10:45 WBC RBC Hgb Hct MCV MCH MCHC RDW Std Deviation Plt Count MPV Immature Gran % (Auto) Neut % (Auto) Lymph % (Auto) [place] % (Auto) Eos % (Auto) Baso % (Auto) Immature Gran # (Auto) Neut # (Auto) Lymph # (Auto) [place] # (Auto) Eos # (Auto) Baso # (Auto) PT 12.0 H INR 1.13 PTT (Actin FS) 28.0 Sodium Potassium Chloride Carbon Dioxide Anion Gap BUN Creatinine Estimated GFR/1.73 m2 BUN/Creatinine Ratio Glucose Calculated Osmolality Calcium Magnesium Total Bilirubin AST ALT Alkaline Phosphatase Creatine Kinase Troponin T < 0.010 Bzd-[id number]-Uusbmkosmrv Pept 1542 H Total Protein Albumin Globulin Albumin/Globulin Ratio Plasma Lactate Urine Source Blood Type Antibody Screen 12/16/16 12/16/16 12/16/16 12:25 12:47 13:15 WBC RBC Hgb Hct MCV MCH MCHC RDW Std Deviation Plt Count MPV Immature Gran % (Auto) Neut % (Auto) Lymph % (Auto) [place] % (Auto) Eos % (Auto) Baso % (Auto) Immature Gran # (Auto) Neut # (Auto) Lymph # (Auto) [place] # (Auto) Eos # (Auto) Baso # (Auto) PT INR PTT (Actin FS) Sodium Potassium Chloride Carbon Dioxide Anion Gap BUN Creatinine Estimated GFR/1.73 m2 BUN/Creatinine Ratio Glucose Calculated Osmolality Calcium Magnesium Total Bilirubin AST ALT Alkaline Phosphatase Creatine Kinase Troponin T Afq-Y-Fpffrdlauri Pept Total Protein Albumin Globulin Albumin/Globulin Ratio Plasma Lactate 1.2 Urine Source CATH Blood Type O POSITIVE Antibody Screen NEGATIVE Orders Category Date Time Status Admit - [facility] Routine AdmDCTranf 12/16/16 14:38 Ordered Cardiac Monitoring DIRECTED Care 12/16/16 10:50 Active Foy Cath Insertion ORDERED Care 12/16/16 11:23 Active Saline Loc NOW Care 12/16/16 10:50 Active Vital Signs Order ARRIVAL TO ROOM Care 12/16/16 14:38 Active Z-Document. for Tele Applied ORDERED Care 12/16/16 14:42 Active ABDOMEN/PELVIS W/O CONTRAST [CT] Stat Exams 12/16/16 12:35 Ordered CHEST-PORTABLE [RAD] Stat Exams 12/16/16 14:03 Completed HEAD W/O CONTRAST [CT] Stat Exams 12/16/16 10:52 Completed BASIC METABOLIC PANEL [CHEM] Stat Lab 12/16/16 10:45 Completed BLOOD CULTURE [BLDCUL] Stat Lab 12/16/16 14:23 Results CBC WITH ELECTRONIC DIFF [HEME] Stat Lab 12/16/16 10:45 Completed CK PROFILE [SP CHEM] Stat Lab 12/16/16 10:45 Completed COMPREHENSIVE METABOLIC PANEL [CHEM] Stat Lab 12/16/16 10:45 Completed LACTATE, PLASMA [CHEM] Stat Lab 12/16/16 13:15 Completed MAGNESIUM [CHEM] Stat Lab 12/16/16 10:45 Completed PRO B-NATRIURETIC PEPTIDE Stat Lab 12/16/16 10:45 Completed PROTIME WITH INR [COAG] Stat Lab 12/16/16 10:45 Completed PTT [COAG] Stat Lab 12/16/16 10:45 Completed TROPONIN T Stat Lab 12/16/16 10:45 Completed TYPE & SCREEN [BBK] Stat Lab 12/16/16 12:47 Completed 0.9% Sodium Chloride Inj [Ns] 1,000 ml Med 12/16/16 10:33 Discontinued .ROUTE As Directed 0.9% Sodium Chloride Inj [Ns] 1,000 ml Med 12/16/16 12:28 Discontinued .ROUTE As Directed 0.9% Sodium Chloride Inj [Ns] 1,000 ml Med 12/16/16 11:07 Discontinued IV 999 mls/hr 0.9% Sodium Chloride Inj [Ns] 1,000 ml Med 12/16/16 12:38 Discontinued IV 999 mls/hr 0.9% Sodium Chloride Inj [Ns] 1,000 ml Med 12/16/16 12:42 Discontinued IV 999 mls/hr Aspirin Med 12/16/16 10:50 Discontinued 325 mg PO STAT STA Dextrose 5%-0.45% NaCl Inj [D5 1/ Ns] 250 ml Med 12/16/16 13:15 Active Norepinephrine [Levophed] 8 mg IV As Directed Telemetry [OM.EQ] Routine Oth 12/16/16 14:38 Active EKG [EKG] Stat Ther 12/16/16 10:50 Draft Transfer/Admit Order [TRANSFER] Routine Transfer 12/16/16 14:38 Ordered Result Diagrams: 12/16/16 10:45 12/16/16 10:45 - CT/MRI 1 CT Study: Head Impression: Abnormal CT Results: tiny left periorbital scalp contusion MRI Study: Head - CONSULTS/PCP/HOSPITALIST Notification #1 *Consult/PCP/Hospitalist*: Time Discussed: 14:31 Reason/Comments: admit Consult Disposition: Admit, other (Made aware of reason for admission and treatment rendered while in ED. Made aware of current imaging results and current plan. Ct abdomen/pelvis pending.) Procedures - CENTRAL LINE Time-Out Verification Completed?: Yes Central Line Lumen: triple Catheter: [place]: 7 Central Line Procedure Prep: Hand Hygeine Performed, Kit Utilized, Chloraprep, Betadine, Sterile Body Drape Placed, Antibiotic-coated Catheter Used Patient Position (To prevent Air Embolism): Trendelenburg (SC/IJ) Central Line Position: subclavian (R) Ultrasound Guided?: Yes Hat, mask, sterile gown, & sterile gloves worn by physician?: Yes Site scrubbed vigorously for 30 seconds? (Groin: 2 min): Yes Anesthetic: 1%, Lidocaine/Xylocaine Volume of Anesthetic (ml's): 5 Post Procedure: Sutured in place, Sterile field maintained, BioPatch placed, Sterile dressing applied, Blood aspirated from each lumen, Placement verfied by XRAY Complications: none Departure - Departure Date of Disposition Decision: 12/16/16 Time of Disposition Decision: 14:32 DIAGNOSIS: Hypotension, Syncope, Anemia, Failure to thrive, Clinical decompensation Disposition: ADMITTED INPATIENT 09 Certified Medical Emergency: Emergent Condition: Critical - Critical Care Note This patient required my direct & personal management of CC.: Yes Total Time (mins): 65 Critical Care Statement: This patient required my direct personal management to treat or rule out processes, the absence of which, could potentiallly result in sudden, clinically significant life or limb threatening deterioration. This chart was documented by the indicated scribe, (Saeed Horowitz, Scribe) and accurately reflects the services I performed and decisions made by me, Beltran Wylie MD, as attested by the provider's signature.
--- NOTE | 2016-12-16 14:48 | Diag Imaging Result Doc PS360 ---
CHEST-PORTABLE - 12/16/2016 INDICATION: POST CENTRAL LINE PLACEMENT TECHNIQUE: COMPARISON: 12/14/2016 FINDINGS: There is a new right internal jugular central venous line in good position, with the catheter tip at the caval atrial junction. Stable left-sided dual-chamber pacemaker in good position. Heart size remains borderline enlarged. There appears to be some pulmonary vascular congestion. IMPRESSION: 1. No complication from central line placement. 2. Pulmonary vascular congestion. Electronically signed by Chava Hernandez 12/16/2016 2:46 PM
[2016-12-16 15:24] LABS: URINE CULTURE NEEDED? NO; URINE MICRO REVIEW NEEDED? NO; URINE SOURCE CATH
[2016-12-16 15:28] LABS: BILIRUBIN URINE NEGATIVE (NEGATIVE); BLOOD URINE NEGATIVE (NEGATIVE); COLOR YELLOW; GLUCOSE URINE NEGATIVE (NEGATIVE); LEUKOCYTES URINE NEGATIVE (NEGATIVE); NITRITE URINE NEGATIVE (NEGATIVE); PROTEIN URINE TRACE mg/dL (NEGATIVE); SP GRAVITY URINE 1.019; TURBIDITY URINE CLEAR (CLEAR); UR EPITHELIAL CELLS <10 /HPF (<10); URINE BACTERIA 1+ /HPF; URINE RBC <10 /HPF (<10); URINE WBC <10 /HPF (<10); UROBILINOGEN URINE NORMAL (NORMAL)
--- NOTE | 2016-12-16 16:11 | Diag Imaging Result Doc PS360 ---
ABDOMEN/PELVIS W/O CONTRAST - 12/16/2016 INDICATION: abdominal pain TECHNIQUE: A CT dose reduction protocol was used. COMPARISON: 11/22/2016 FINDINGS: There is significant cardiomegaly. Trace pleural effusions. There are some early interstitial pulmonary edema in the lung bases. There is a stable common bile duct stent in good position. Stable moderately severe biliary dilation in spite of this. There are some stable stones in the mid-distal common bile duct. No radiodense renal stones. No hydronephrosis or hydroureter. Stable left ovarian cyst. Stable hysterectomy changes. There is a Foy catheter in the urinary bladder which otherwise appears normal. Rectum is normal. No bowel obstruction or inflammation. No free air or free fluid. There is an irregular, hyperdense superficial subcutaneous fluid collection at the left lateral flank extending from the spine to the lateral rib cage, at about L1-L3. This measures about 15 x 6 cm. No visible fractures. IMPRESSION: 1. Soft tissue hematoma at the posterior left flank, extending from the spine to the lateral rib cage, at about L1-L3. 2. Otherwise no change from prior. Electronically signed by Chava Hernandez 12/16/2016 4:09 PM
[2016-12-16] MEDS ORDERED: NS 500 ML IV SCH (16:44)
[2016-12-16] MEDS ORDERED: LEVOPHED 8 MG in D5 1/2 NS 250 ML IV SCH (17:00)
[2016-12-16] MEDS: DILAUDID IV PRN ×2 (18:05→22:02)
[2016-12-16] MEDS: MAXIPIME 1 GM/NS 1 GM/50 ML IVPB IV SCH (21:09)
--- NOTE | 2016-12-16 21:43 | HISTORY AND PHYSICAL ---
HISTORY OF PRESENT ILLNESS: An 89-year-old white female recently discharged from the hospital on 11/27/2017. Patient is doing very well. Apparently, she came in over the weekend with UTI symptoms. Patient was seen by Dr. Guerra, and sent home on antibiotics. She had a left-sided x- rays done on 12/14/2016. X-rays were negative for acute bony injury. Then she was brought back today by the family with syncope, low blood pressure, lying at home, not able to move. Patient was seen in the emergency room. She was found to have hematocrit of 21 which is substantially low compared to [address] showed a hematoma around the left side of the flank area. She was admitted in ICU basically for IV fluids, IV vasopressors and maintain the blood pressure around 100 and also transfusion of blood. Patient is not taking any blood thinners. In the past, patient had subdural hematoma. Occult blood was negative. In the emergency room, patient was a headache and with a lot of pain. As a result, a hospital admission was warranted. PAST MEDICAL HISTORY: Subcutaneous lipoma in the right interscapular area. Benign bile duct stricture. Hyperlipidemia. Hypothyroidism. Paroxysmal atrial fibrillation. Pyloric stenosis. Left frontal hemorrhage. 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 PAST SURGICAL HISTORY: Thyroid surgery, appendectomy, cholecystectomy, complete hysterectomy, bilateral cataract surgery, bilateral bunionectomy, right ear tympanoplasty, right knee surgery, status post ERCP stent, status post dilatation of pyloric stenosis. MEDICATIONS: Celebrex 200 daily, Plavix 75 daily, Lasix 40 daily, Synthroid 50 mcg daily, Losartan/hydrochlorothiazide 50/12.5 daily, metoprolol 50 daily, [place] as needed, trazodone 200 daily, pravastatin 40 daily, Premarin 0.625 cream as needed, temazepam 15 mg daily, Zanaflex 4 mg daily. ALLERGIES: Not known. SOCIAL HISTORY: since 2014. Lives with her sister in [place]. No smoking. No alcohol. FAMILY HISTORY: Father of stomach cancer at 89. Mom at 89 with heart attack. REVIEW OF SYSTEMS: The patient is confused, not able to obtain any history in the emergency room and also in the ICU. PHYSICAL EXAMINATION: VITAL SIGNS: On examination, she is afebrile. Initial blood pressure was 80/53 and now is 117/62, 3 L nasal cannula 94%. 5 feet 1, 131 pounds. GENERAL: Slightly confused with garbled, slightly pale. NECK: Supple. CHEST: Bilateral air entry. HEART: Sounds are regular. ABDOMEN: Belly is soft, nontender. Good bowel sounds. INTEGUMENT: Soft tissue hematoma on the left side noted. NEUROLOGIC: Nonfocal. INVESTIGATIONS: CBC: White cell count 9.4, hematocrit 21, MCV 83. Platelet count normal. Hematocrit was 35 two days ago. PT 12, INR 1.1. SMA7: Sodium 138, potassium 3.7, chloride 103, BUN 36, creatinine 1.5, glucose 136, proBNP 1500. Cardiac enzymes are normal. Urinalysis is clear. Stool occult blood was negative. Urine cultures: Klebsiella. A CT scan of the abdomen and pelvis: Soft tissue hematoma posterior left flank on the lateral rib cage. Stable. Significant cardiomegaly. Stable common bile duct stent with stones. Hysterectomy. Chest x-ray: Right IJ central line. No pneumothorax. ASSESSMENT AND PLAN: 1. An 89-year-old white female admitted to the hospital with history of fall sustaining injury to the left rib cage with soft tissue hematoma, declining of hematocrit, hypotension, acute kidney injury. Keep the vasopressor, systolic blood pressure more than 100. Transfuse 2 units of packed red blood cells. 2. Urinary tract infection with combination of Klebsiella and Pseudomonas. I will give her cefepime 1 g IV q.12 hours. 3. Paroxysmal atrial fibrillation. Not a candidate for anticoagulation. Continue to monitor in ICU, pain control with Dilaudid and will slowly reconcile home medications. We will discuss with the family about her safety and possible long-term placement. cc: Ben Kay MD
[2016-12-17] MEDS: DILAUDID IV PRN ×2 (04:29→12:41)
[2016-12-17 05:22] LABS: MANUAL DIFF NEEDED? NO
[2016-12-17 05:25] LABS: BASO% 0.2 % (0.0-0.8); EOS# 0.25 X1000 (0.0-0.7); EOS% 2.3 % (0.0-10.0); HEMATOCRIT 34.7 % (37.0-47.0); HEMOGLOBIN 10.7 g/dL (12.0-16.0); IMM GRAN# 0.09 X1000 (0.0-0.04); IMM GRAN% 0.8 % (0.0-0.5); LYMPH# 4.77 X1000 (1.2-3.4); LYMPH% 44.2 % (20.5-51.1); MCH 26.5 PG (27-31); MCHC 30.8 g/dL (33-37); MCV 85.9 FL (81-99); MONO# 0.58 X1000 (0.11-0.59); MONO% 5.4 % (1.7-9.3); MPV 11.1 FL (7.4-10.4); NEUT% 47.1 % (42.2-75.2); PLT 234 X1000 (130-400); RBC 4.04 XMIL (4.2-5.4)
[2016-12-17 06:33] LABS: CALCIUM 7.6 mg/dL (8.8-10.2); POTASSIUM 3.9 mmol/L (3.5-5.1)
[2016-12-17] MEDS: MAXIPIME 1 GM/NS 1 GM/50 ML IVPB IV SCH ×2 (09:00→20:09)
[2016-12-17] MEDS: SYNTHROID PO SCH ×2 (12:29→12:37)
[2016-12-17] MEDS: PRAVACHOL PO SCH (12:29)
[2016-12-17] MEDS: ZANAFLEX PO SCH (12:29)
[2016-12-17] MEDS: RESTORIL PO SCH ×2 (12:31→21:46)
--- NOTE | 2016-12-17 19:13 | PROGRESS NOTE ---
DATE: 12/17/2016 SUBJECTIVE: The patient received 2 units of packed RBCs. More alert. REVIEW OF SYSTEMS: HEENT: No headache. No vision problems. Cardiopulmonary: No chest pain, shortness of breath. Bruising on the left side of the chest wall. Abdomen: No GI symptoms, nausea, vomiting. Extremities: No swelling of legs. Neurologic: No neurological symptoms or weakness. Patient wants some sleeping medicine. OBJECTIVE: Vital signs: Low-grade fever. Blood pressure is 101/51, pulse is 69, on room air. HEENT: Within normal limits. Neck: Supple. No lymphadenopathy. No goiter. Chest: Bilateral air entry. Heart: Sounds are regular. Abdomen: Belly is soft, nontender. Good bowel sounds. Integument: Extensive bruises, ecchymosis noted. Neurologic: No focal deficits. LABORATORIES: CBC: White cell count 10.7, hematocrit 34, platelets 234,000. SMA7: Sodium 140, potassium 3.9, chloride 108, BUN 30, creatinine 1.1. Glucose 67, calcium 7.6, cardiac enzymes are normal. ASSESSMENT AND PLAN: 1. Acute blood loss due to a subcutaneous hematoma from the fall, status post 2 units of packed red blood cells. Hematocrit is stable. 2. Hemoccult negative. No need further gastrointestinal workup. 3. Azotemia due to low blood pressure. Improving. 4. Hypotension, stable. Off Levophed. 5. Insomnia, temazepam as needed. 6. Urinary tract infection, on cefepime 1 g q.12 hours. Continue orthostatic blood pressure and if stable hemodynamics, will be transferred to the ICU in the morning. LEVEL OF DOCUMENTATION: 25 minutes. cc: Ben Kay MD
[2016-12-18] MEDS: DILAUDID IV PRN ×3 (01:03→20:47)
[2016-12-18 05:09] LABS: MANUAL DIFF NEEDED? NO
[2016-12-18 05:12] LABS: BASO% 0.2 % (0.0-0.8); EOS# 0.28 X1000 (0.0-0.7); EOS% 2.7 % (0.0-10.0); HEMATOCRIT 34.8 % (37.0-47.0); HEMOGLOBIN 10.5 g/dL (12.0-16.0); IMM GRAN# 0.08 X1000 (0.0-0.04); IMM GRAN% 0.8 % (0.0-0.5); LYMPH# 4.39 X1000 (1.2-3.4); LYMPH% 42.7 % (20.5-51.1); MCHC 30.2 g/dL (33-37); MCV 86.1 FL (81-99); MONO# 0.74 X1000 (0.11-0.59); MONO% 7.2 % (1.7-9.3); NEUT% 46.4 % (42.2-75.2); PLT 256 X1000 (130-400); RBC 4.04 XMIL (4.2-5.4)
[2016-12-18 05:56] LABS: CALCIUM 7.9 mg/dL (8.8-10.2)
[2016-12-18] MEDS: SYNTHROID PO SCH (06:09)
[2016-12-18] MEDS: MAXIPIME 1 GM/NS 1 GM/50 ML IVPB IV SCH (09:05)
[2016-12-18] MEDS: ZANAFLEX PO SCH (09:06)
[2016-12-18] MEDS: PRAVACHOL PO SCH (09:06)
[2016-12-18] MEDS: CELEBREX PO SCH (13:39)
[2016-12-18] MEDS: COZAAR PO SCH (13:39)
[2016-12-18] MEDS: CORDARONE PO SCH (13:39)
--- NOTE | 2016-12-18 15:08 | CONSULTATION ---
DATE OF CONSULTATION: 12/18/2016 IMPRESSION: 1. Recent syncope. Suspect related to low blood pressure. 2. Atrial fibrillation. 3. Atherosclerotic coronary disease. 4. Peripheral artery disease and atherosclerotic cerebrovascular disease. 5. Left subclavian steal syndrome. 6. Hypertension. 7. Hyperlipidemia. 8. History of recurrent falls related to some degree of gait instability. Patient not felt to be a candidate for anticoagulation. RECOMMENDATIONS: 1. Agree with withdrawing blood pressure medicines until blood pressure improves. 2. Would monitor blood pressure via right arm only, given subclavian steal syndrome. 3. Would manage blood pressure more conservatively and allows systolic blood pressure to be in the 140-150 range. 4. Conservative cardiovascular management overall. HISTORY: This 89-year-old, white female, with past history of [id number] atherosclerotic coronary disease by coronary angiography in 2011, atrial fibrillation, sinus node dysfunction and previous permanent pacemaker, atherosclerotic vascular disease with left subclavian steal syndrome, cerebrovascular disease, hypertension, hyperlipidemia was admitted after a recent fall. She recently stumbled and fell and had contusions to the left side of her body. She denies any loss of consciousness with this. However, she does recall having a syncopal spell Wednesday, 2 weeks ago, while she was in [employer]. She describes slumping over and then waking back up and having the members of the [employer] class indicate to her that she had passed out. She denies any associated palpitations or chest discomfort. She has history of previous falls in the past and, on 1 occasion, had an intracranial hemorrhage though she is not felt to be a suitable candidate for long-term anticoagulation. She has been started on Plavix in addition to aspirin given the significant nature of her atherosclerotic cerebrovascular disease. She has not had any chest pain or palpitations. PAST MEDICAL HISTORY: 1. Atherosclerotic coronary disease. [id number] severity by coronary angiography in 2011. 2. Atrial fibrillation. 3. Sick sinus syndrome and previous permanent pacemaker implant. 4. Hypertension. 5. Hyperlipidemia. 6. Some degree of gait instability and recurrent falls. 7. Peripheral vascular disease. 8. History of previous fall with resultant intracranial hemorrhage. PAST SURGICAL HISTORY: Appendectomy, thyroidectomy, hysterectomy, cholecystectomy, endoscopic retrograde cholangiopancreatography, sphincterotomy, stone extraction, stent placement, balloon dilatation of pylorus for pyloric stenosis. ALLERGIES: She is allergic or intolerant to ciprofloxacin and morphine. MEDICATIONS: Prior to admission as listed. SOCIAL HISTORY: She lives in a house adjacent to her sister. They both tend to look after each other. Her sister is partially blind related to macular degeneration and is dependent on the patient. The patient remains quite active and indicates that she is strong. She does have a tendency for falls, however. She indicates that she will drive a car during the day and also mows her own lawn with a riding mower. She does not smoke. FAMILY HISTORY: Negative for premature coronary disease. REVIEW OF SYSTEMS: Pulmonary: Negative. Gastrointestinal: Negative. Constitutional: Negative. Remainder of review of systems negative/noncontributory with 14 total systems reviewed. PHYSICAL EXAMINATION: General: This is a pleasant, elderly female in no distress. Vital Signs: As recorded. HEENT Exam: Extraocular movements intact. Mucous membranes are moist. Neck: Supple without jugular venous distention. Bilateral carotid bruits are present, more prominent on the left. Chest: Clear to auscultation. Cardiac Exam: A regular rate and rhythm without appreciable murmur or gallop. ECG monitor shows atrial fibrillation and ventricular pacing. Abdomen: Soft, nontender. Bowel sounds are normal. Extremities: Without edema. Neurologic: Exam reveals her to be alert and fully oriented. Speech is fluent. She moves all 4 extremities equally well. Skin: Warm and dry. Psych: Exam reveals her mood to be appropriate. PERTINENT DATA: Twelve lead EKG demonstrates atrial fibrillation, ventricular paced rhythm. Pacemaker has been interrogated and demonstrates appropriate function. cc: MD Ben Jerry MD
--- NOTE | 2016-12-18 17:55 | PROGRESS NOTE ---
DATE: 12/18/2016 SUBJECTIVE: Patient was examined in ICU. She is doing very well. Hemodynamics are stable. She wants a Cardiology consult for evaluation of syncope. She has a history of atrial fibrillation. She was seen before by Dr. Dutta. REVIEW OF SYSTEMS: No headache. No vision problem.Cardiopulmonary: No chest pain, shortness of breath other than pain in the left side of the chest and the flank area. GI: No nausea, vomiting, abdominal pain. : No history of hesitancy, frequency. No neurological symptoms or weakness. PHYSICAL EXAMINATION: On examination, she is afebrile. Pulse is 79. Blood pressure is 130/68. 5 feet 4, 148 pounds and I's and O's are even.HEENT: Atraumatic, normocephalic. She also had a slight bruise noted on the left side of the head. Neck: Supple. No lymphadenopathy. Chest: Bilateral air entry. Heart: Sounds are regular. Abdomen: Belly is soft, nontender. Good bowel sounds. Extensive bruising and ecchymosis noted on the left side of the chest. Extremities: No peripheral edema. Neurologic: No new neurological deficits noted. INVESTIGATIONS: CBC: White cell count 10, hematocrit 34, platelets 256,000. SMA 7: Sodium 139, potassium 4.0, chloride 104, BUN 19, creatinine 1.1. Glucose 95. Calcium 7.9. Cardiac enzymes were normal. ASSESSMENT AND PLAN: 1. Anemia due to acute blood loss from the hematoma on the left side of the chest status post 2 units of packed RBCs. Stable hematocrit. Heme-negative stool. 2. Intermittent atrial fibrillation with the pacemaker spiking. Cardiology consult. Discussed with Dr. Dutta possible septal monitor. Not a candidate for anticoagulation. 3. Hypotension due to acute blood loss. Resolving. Hemodynamics were stable. 4. Recurrent UTI due to gram-negative rods. IV cefepime 1 g q.12. 5. Reconcile home medications slowly and start on Cordarone, Celebrex, pravastatin and chronic insomnia on Restoril. 6. Disposition. Transferred to the ICU from the floor in telemetry and please see the transfer order sheets. LEVEL OF DOCUMENTATION: 25 minutes. cc: Ben Kay MD
[2016-12-18] MEDS ORDERED: MIRALAX PO ONE (20:33)
[2016-12-18] MEDS: RESTORIL PO SCH (20:46)
[2016-12-19] MEDS: MAXIPIME 1 GM/NS 1 GM/50 ML IVPB IV SCH ×3 (00:49→20:12)
[2016-12-19] MEDS: DILAUDID IV PRN ×3 (00:50→20:13)
[2016-12-19 06:08] LABS: MANUAL DIFF NEEDED? NO
[2016-12-19 06:22] LABS: BASO% 0.2 % (0.0-0.8); EOS# 0.22 X1000 (0.0-0.7); EOS% 2.6 % (0.0-10.0); HEMATOCRIT 33.2 % (37.0-47.0); HEMOGLOBIN 10.1 g/dL (12.0-16.0); IMM GRAN# 0.08 X1000 (0.0-0.04); IMM GRAN% 0.9 % (0.0-0.5); LYMPH# 3.37 X1000 (1.2-3.4); LYMPH% 39.5 % (20.5-51.1); MCH 26.2 PG (27-31); MCHC 30.4 g/dL (33-37); MONO# 0.68 X1000 (0.11-0.59); MPV 10.7 FL (7.4-10.4); NEUT% 48.8 % (42.2-75.2); PLT 232 X1000 (130-400); RBC 3.86 XMIL (4.2-5.4)
[2016-12-19 06:40] LABS: AGAP 10; BUN 14 mg/dL (8-22); CALCIUM 7.9 mg/dL (8.8-10.2); CHLORIDE 107 mmol/L (98-107); COSMO 282; POTASSIUM 3.9 mmol/L (3.5-5.1); SODIUM 141 mmol/L (136-145); TCO2 24 mmol/L (25-35)
[2016-12-19] MEDS: SYNTHROID PO SCH (06:41)
[2016-12-19] MEDS: CORDARONE PO SCH (08:31)
[2016-12-19] MEDS: ZANAFLEX PO SCH (08:31)
[2016-12-19] MEDS: CELEBREX PO SCH (08:31)
[2016-12-19] MEDS: PRAVACHOL PO SCH (08:31)
[2016-12-19] MEDS: COZAAR PO SCH (08:31)
--- NOTE | 2016-12-19 12:05 | PROGRESS NOTE ---
DATE: 12/19/2016 SUBJECTIVE: The patient says she just feels bad. She was sleeping when I first came in. She says she was hurting earlier but was given some pain medicine and is not hurting as much now. OBJECTIVE: Vital Signs: Show a temp of 97.4 degrees Fahrenheit. Pulse is 103 and irregular, blood pressure 153/99, O2 saturations 97% on room air. HEENT: She is normocephalic. Lungs: Clear to auscultation. Heart: Irregularly irregular. Abdomen: Soft. Active bowel sounds. No organomegaly or tenderness. She does have a large hematoma in the left axis axillary area. Neurological: Intact grossly. ASSESSMENT: 1. Large hematoma left chest area. 2. Anemia from the hematoma. 3. Intermittent atrial fibrillation. 4. Hypotension due to acute blood loss. 5. UTI. PLAN: Continue care. cc: MD Ben Fernandez Jr, MD
--- NOTE | 2016-12-19 16:09 | PROGRESS NOTE ---
DATE: 12/19/2016 SUBJECTIVE: Patient continues asymptomatic from a cardiovascular standpoint. She has been getting up a few times to use a walker. She denies any dizziness. OBJECTIVE: Vital Signs: Blood pressure this morning 155/77 and this afternoon 90/57. Both measured in the right arm. Heart rate 83 and regular. There is no significant jugular venous distention. Chest: Clear to auscultation. Cardiac Exam: Reveals a regular rate and rhythm. There is no evidence of peripheral edema. IMPRESSION: 1. Recent syncope probably related to low blood pressure. 2. Atrial fibrillation, recurrent despite amiodarone. 3. Atherosclerotic coronary artery disease. 4. Peripheral artery disease with atherosclerotic cerebral vascular disease and left subclavian steal syndrome. 5. Hypertension. 6. Hyperlipidemia. 7. History of recurrent falls related to some degree of gait instability. The patient has not been felt to be a candidate for anticoagulation. RECOMMENDATIONS: 1. Given recurrence of atrial fibrillation despite amiodarone, would discontinue amiodarone. 2. Blood pressure this afternoon low. Would discontinue losartan. 3. Overall goal is to allow the patient to have a systolic blood pressure of 140-150 or so given her significant cerebrovascular disease. 4. Conservative cardiovascular care overall. She appears to be a poor candidate for long-term anticoagulation and for the present it is probably best to have her on anti-platelet therapy. However consideration might be given to future use of Watchman device to try and reduce her risk of stroke related to atrial fibrillation. cc: MD Ben Jerry MD
[2016-12-19] MEDS ORDERED: MILK OF MAGNESIA PO ONE (19:04)
[2016-12-19] MEDS: COLACE PO SCH (20:12)
[2016-12-19] MEDS: RESTORIL PO SCH (20:12)
[2016-12-20] MEDS: DILAUDID IV PRN ×4 (00:09→23:40)
[2016-12-20] MEDS: SYNTHROID PO SCH (06:10)
[2016-12-20] MEDS: CELEBREX PO SCH (09:27)
[2016-12-20] MEDS: COLACE PO SCH ×2 (09:27→20:19)
[2016-12-20] MEDS: MAXIPIME 1 GM/NS 1 GM/50 ML IVPB IV SCH ×2 (09:28→20:20)
[2016-12-20] MEDS: PRAVACHOL PO SCH (09:28)
[2016-12-20] MEDS: ZANAFLEX PO SCH (09:28)
--- NOTE | 2016-12-20 11:43 | PROGRESS NOTE ---
DATE: 12/20/2016 SUBJECTIVE: The patient says she is feeling better. She did have a little pain in her chest last night but was given a pain shot and it went away. She had a good bowel movement this morning. She has had no more syncopal episodes. Her amiodarone and losartan were stopped, and her blood pressure has come up somewhat. OBJECTIVE: Vital Signs: Blood pressure is 145/78, respirations 19, pulse 108, temperature is 98.3 degrees Fahrenheit. Oxygen saturation is 97% on room air. HEENT: She is normocephalic. EOMs intact. PERRLA. Throat clear. Lungs: Clear to auscultation and percussion without rhonchi, rales, or wheezes. Heart: Irregularly irregular without murmurs, gallops, or friction rubs. Abdomen: Soft. Active bowel sounds. No organomegaly or tenderness. Neurological Examination: Intact grossly. She does have a large hematoma in the left side of her chest. Laboratory: Hemoglobin stayed stable at 10.1 after being as low as 6.3 on admission. The 10.1 was actually done yesterday and not today. We will get labs today. ASSESSMENT: 1. Large hematoma, left chest area. 2. Anemia from hematoma. 3. Syncope. 4. Intermittent atrial fibrillation. 5. Hypotension due to blood loss. 6. Urinary tract infection. PLAN: Continue care. cc: MD Ben Fernandez Jr, MD
--- NOTE | 2016-12-20 18:03 | PROGRESS NOTE ---
DATE: 12/20/2016 SUBJECTIVE: Patient continues without chest discomfort, dyspnea, or lightheadedness. She has gotten up a few times. OBJECTIVE: Vital signs: Blood pressure 106/70 in right arm. Heart rate 76 and regular. Neck: There is no significant jugular venous distention. Chest: Clear to auscultation. Cardiac Exam: Reveals a regular rate and rhythm without murmur or gallop. Extremities: Without edema. IMPRESSIONS: 1. Recent syncope, probably related to low blood pressure. Blood pressure currently stable on no antihypertensive medications. 2. Recurrent atrial fibrillation despite amiodarone. 3. Atherosclerotic coronary disease. 4. Peripheral artery disease with significant atherosclerotic cerebrovascular disease and left subclavian steal syndrome. 5. Hypertension. 6. Hyperlipidemia. 7. History of recurrent falls related to some degree of gait instability. The patient has not been felt to be a suitable candidate for anticoagulation. RECOMMENDATIONS: 1. Leave off losartan for now. Overall goal of antihypertensive therapy is to allow systolic blood pressure of 140-150 or so given her significant cerebrovascular disease and tendency for syncope/poor tolerance of low normal blood pressure. 2. Continue antiplatelet therapy. Future consideration may be given to use of Watchman device to try and reduce her risk of stroke related to atrial fibrillation. 3. We will see further on an as needed basis. cc: MD Ben Jerry MD
[2016-12-20] MEDS: RESTORIL PO SCH (20:20)
[2016-12-21] MEDS: DILAUDID IV PRN ×2 (03:00→11:28)
[2016-12-21] MEDS: SYNTHROID PO SCH ×2 (04:11→06:04)
[2016-12-21 06:10] LABS: MANUAL DIFF NEEDED? NO
[2016-12-21 06:16] LABS: BASO% 0.2 % (0.0-0.8); EOS# 0.28 X1000 (0.0-0.7); EOS% 2.9 % (0.0-10.0); HEMATOCRIT 37.1 % (37.0-47.0); HEMOGLOBIN 11.1 g/dL (12.0-16.0); IMM GRAN# 0.08 X1000 (0.0-0.04); IMM GRAN% 0.8 % (0.0-0.5); LYMPH# 3.98 X1000 (1.2-3.4); LYMPH% 41.9 % (20.5-51.1); MCH 25.9 PG (27-31); MCHC 29.9 g/dL (33-37); MCV 86.7 FL (81-99); MONO# 0.61 X1000 (0.11-0.59); MONO% 6.4 % (1.7-9.3); MPV 10.5 FL (7.4-10.4); NEUT% 47.8 % (42.2-75.2); PLT 246 X1000 (130-400); RBC 4.28 XMIL (4.2-5.4)
[2016-12-21 06:37] LABS: CALCIUM 8.5 mg/dL (8.8-10.2); POTASSIUM 4.9 mmol/L (3.5-5.1)
[2016-12-21] MEDS: ZANAFLEX PO SCH ×2 (07:55→08:08)
[2016-12-21] MEDS: MAXIPIME 1 GM/NS 1 GM/50 ML IVPB IV SCH ×3 (07:55→20:28)
[2016-12-21] MEDS: COLACE PO SCH ×3 (07:55→20:28)
[2016-12-21] MEDS: CELEBREX PO SCH ×2 (07:55→08:07)
[2016-12-21] MEDS: PRAVACHOL PO SCH ×2 (07:55→08:08)
--- NOTE | 2016-12-21 18:43 | PROGRESS NOTE ---
DATE: 12/21/2016 SUBJECTIVE: Interval history was reviewed over the weekend. Dr. Mondragon was covering. The patient is out of ICU. REVIEW OF SYSTEMS: None reported. No dizziness. Patient was seen by export manager. She has intermittent atrial fibrillation and pacemaker rhythm. Pacemaker got checked. OBJECTIVE: Vital signs: She is afebrile. Orthostatic blood pressure reported 85/70 in the right arm. . HEENT Examination: Within normal limits. Neck: Supple. No lymphadenopathy. Chest: Bilateral air entry. Heart: Sounds are regular. Abdomen: Belly is soft, nontender. Good bowel sounds. Extensive bruising noted on left side of the abdomen and chest. No focal deficits. INVESTIGATIONS: CBC: White cell count 9.5, hematocrit 37, platelets 246,000. PT 12, INR 1.1, SMA 7. Sodium 142, potassium 4.9, chloride 105, BUN 14, creatinine 0.9, glucose 94, cardiac enzymes were normal. ASSESSMENT AND PLAN: 1. Syncope, orthostatic hypotension off JOHN inhibitors, rule out renal artery stenosis, left subclavian artery stenosis. Blood pressure needs to be taken on the right side. 2. Atrial fibrillation currently in sinus. Pacemaker got interrogated. Stable. 3. Urinary tract infection on cefepime. Repeat UA and culture and sensitivity. 4. Disposition. Discussed with the patient refusal to go for rehabilitation. She wants to go home with outpatient home health. Plan of care is to schedule CT renal angiogram in the morning. cc: Ben Kay MD MTDD
[2016-12-21 18:48] LABS: URINE SOURCE VOIDED
[2016-12-21 18:53] LABS: BILIRUBIN URINE NEGATIVE (NEGATIVE); BLOOD URINE NEGATIVE (NEGATIVE); COLOR YELLOW; GLUCOSE URINE NEGATIVE (NEGATIVE); LEUKOCYTES URINE SMALL (NEGATIVE); NITRITE URINE NEGATIVE (NEGATIVE); PROTEIN URINE 50 mg/dL (NEGATIVE); SP GRAVITY URINE 1.018; TURBIDITY URINE CLEAR (CLEAR); UROBILINOGEN URINE NORMAL (NORMAL)
[2016-12-21 18:54] LABS: URINE MICRO REVIEW NEEDED? YES
[2016-12-21 19:02] LABS: UR EPITHELIAL CELLS <10 /HPF (<10); URINE BACTERIA NEGATIVE /HPF; URINE RBC TNTC /HPF (<10)
[2016-12-21] MEDS: RESTORIL PO SCH (20:28)
[2016-12-22] MEDS: DILAUDID IV PRN ×2 (02:08→20:33)
[2016-12-22] MEDS: SYNTHROID PO SCH (06:33)
[2016-12-22 06:38] LABS: MANUAL DIFF NEEDED? NO
[2016-12-22 06:41] LABS: BASO% 0.1 % (0.0-0.8); EOS# 0.26 X1000 (0.0-0.7); EOS% 3.2 % (0.0-10.0); HEMATOCRIT 34.6 % (37.0-47.0); HEMOGLOBIN 10.5 g/dL (12.0-16.0); IMM GRAN# 0.06 X1000 (0.0-0.04); IMM GRAN% 0.7 % (0.0-0.5); LYMPH# 3.11 X1000 (1.2-3.4); LYMPH% 38.8 % (20.5-51.1); MCH 26.5 PG (27-31); MCHC 30.3 g/dL (33-37); MCV 87.4 FL (81-99); MONO# 0.52 X1000 (0.11-0.59); MONO% 6.5 % (1.7-9.3); MPV 10.5 FL (7.4-10.4); NEUT% 50.7 % (42.2-75.2); PLT 196 X1000 (130-400); RBC 3.96 XMIL (4.2-5.4)
[2016-12-22 07:00] LABS: AGAP 6; BUN 14 mg/dL (8-22); CALCIUM 8.7 mg/dL (8.8-10.2); CHLORIDE 105 mmol/L (98-107); COSMO 277; POTASSIUM 4.6 mmol/L (3.5-5.1); SODIUM 139 mmol/L (136-145); TCO2 28 mmol/L (25-35)
[2016-12-22] MEDS: COLACE PO SCH ×3 (07:34→20:34)
[2016-12-22] MEDS: PRAVACHOL PO SCH ×2 (07:34→08:44)
[2016-12-22] MEDS: ZANAFLEX PO SCH ×2 (07:35→08:44)
[2016-12-22] MEDS: CELEBREX PO SCH ×2 (07:35→08:44)
[2016-12-22] MEDS: MAXIPIME 1 GM/NS 1 GM/50 ML IVPB IV SCH ×2 (08:44→20:34)
--- NOTE | 2016-12-22 09:15 | Diag Imaging Result Doc PS360 ---
EXAM: ANGIOGRAM/RENAL ARTERIES HISTORY: R/O Renal artery stenosis TECHNIQUE: CT angiography of the abdomen with 3-D MIPS and dose reduction. COMMENT: The study is compared with the noncontrast study of 12/16/2016. There has been some increase in the volume of pleural fluid bilaterally. There is bilateral basilar compressive atelectasis particularly in the lower lobes posteriorly. There are calcified stones in the distal common bile duct. There is a biliary stent present. There is dilatation of the pancreatic duct which appears slightly worse than it was on the previous study. There is some slight cortical scarring in the right kidney. There is extensive atherosclerotic calcification in the aorta with slight infrarenal ectasia of the abdominal aorta which is less than 2.8 Cm in greatest dimension. There is a fair amount of stool in the ascending colon. The mesenteric arteries appear to be patent. 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 Both renal arteries appear to be patent on the right. There may be some ostial stenosis of the left renal artery. 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 Duplicated right renal arteries. Cortical scarring or old infarction particularly in the mid portion of the right kidney posterior laterally. This is probably due to small vessel disease beyond the primary branching of the upper pole moiety. Other nonacute findings as described above. Electronically signed by Gerry Avila 12/22/2016 9:13 AM
--- NOTE | 2016-12-22 11:14 | PROGRESS NOTE ---
DATE: 12/22/2016 SUBJECTIVE: The patient's blood pressure dropped to 80/60 yesterday. Complains of dizzy. She is very orthostatic. She is not on any blood pressure medicine. She wants to go home. PHYSICAL EXAMINATION: Vital Signs: She is orthostatic. HEENT: Examination within normal limits. Chest: Clear. Heart: Heart sounds are regular. Abdomen: Belly is soft, nontender. Good bowel sounds. Neurologic: No obvious neurological deficits. ASSESSMENT AND PLAN: 1. Syncope due to orthostatic hypotension on the right side, etiology to be determined. Rule out renal artery stenosis. CT renal angiogram. 2. Urinary tract infection, on cefepime. 3. Hyperlipidemia, on Pravachol. 4. Insomnia, on Restoril. 5. We will hold the discharge. Based on the CT renal angiogram, we will follow up. 6. Paroxysmal atrial fibrillation, status post pacemaker, in sinus. 7. Plan of care discussed with the patient. LEVEL OF DOCUMENTATION: 25 minutes. cc: Ben Kay MD
[2016-12-22] MEDS: RESTORIL PO SCH ×2 (20:33→21:17)
[2016-12-23] MEDS: DILAUDID IV PRN ×2 (03:26)
[2016-12-23 06:45] LABS: MANUAL DIFF NEEDED? NO
[2016-12-23 06:56] LABS: BASO% 0.2 % (0.0-0.8); EOS# 0.21 X1000 (0.0-0.7); EOS% 3.2 % (0.0-10.0); HEMATOCRIT 33.7 % (37.0-47.0); HEMOGLOBIN 10.1 g/dL (12.0-16.0); IMM GRAN# 0.05 X1000 (0.0-0.04); IMM GRAN% 0.8 % (0.0-0.5); LYMPH# 2.56 X1000 (1.2-3.4); LYMPH% 39.3 % (20.5-51.1); MCH 26.2 PG (27-31); MCV 87.5 FL (81-99); MONO# 0.47 X1000 (0.11-0.59); MONO% 7.2 % (1.7-9.3); MPV 10.8 FL (7.4-10.4); NEUT% 49.3 % (42.2-75.2); PLT 201 X1000 (130-400); RBC 3.85 XMIL (4.2-5.4)
[2016-12-23 07:37] LABS: CALCIUM 8.2 mg/dL (8.8-10.2); POTASSIUM 4.4 mmol/L (3.5-5.1)
[2016-12-23 08:00] VITALS: BP 171/91
[2016-12-23] MEDS: PRAVACHOL PO SCH (08:54)
[2016-12-23] MEDS: COLACE PO SCH (08:54)
[2016-12-23] MEDS: CELEBREX PO SCH (08:54)
[2016-12-23] MEDS: ZANAFLEX PO SCH (08:54)
[2016-12-23] MEDS: SYNTHROID PO SCH (08:55)
--- NOTE | 2016-12-23 21:38 | DISCHARGE SUMMARY ---
ADMISSION DATE: 12/16/2016 DISCHARGE DATE: 12/23/2016 DISCHARGING DIAGNOSIS: Anemia due to acute blood loss from the soft tissue hematoma on the left side of the chest. SECONDARY DIAGNOSES: 1. Atrial fibrillation, status post pacemaker interrogation, stable. 2. Urinary tract infection. 3. Left subclavian artery stenosis. 4. History of biliary stricture status post stent. 5. Hyperlipidemia. 6. Hypothyroidism. 7. History of pyloric stenosis. CONSULTANTS: Franklin Dutta MD. PROCEDURES: 1. Transfusion of 2 units of packed RBCs. 2. Central line on the right internal jugular vein. BRIEF HISTORY: Please see the H and P that was done on the day of admission. In brief, she is an 89-year-old, white female who was seen in the house with history of fall sustaining injury to the left side of the chest, unable to move. The patient was hypotensive and was brought into the ER by ambulance. In the ER, patient had blood pressure low and had extensive soft tissue hematoma and bruising on the left side of the chest. Patient has been on Plavix. She has a history of atrial fibrillation and stopped taking the anticoagulation because of the subdural hematoma and injuries. She was admitted in ICU. HOSPITAL COURSE: She was given initially vasopressors, subsequently given 2 units of packed RBCs. Stool cultures were negative. Hematocrit 21. Following blood transfusion it went up to 35. There were no signs of GI bleeding noted. The patient was transferred from the ICU to the regular floor. She remains orthostatic blood pressure. Cardiology consult was obtained. They want to stop the Cozaar and further workup. Pacemaker interrogation was done, it is working very well. The patient had a renal arteriogram that did not show any evidence of renal artery stenosis. At the time of discharge, patient is ambulating well, not orthostatic. LABORATORIES: CBC: White cell count 6.5, hematocrit 33, platelets 201,000. SMA 7: Sodium 140, potassium 4.4, chloride 104, BUN 13, creatinine 0.9, glucose 81. Stool cultures were negative. Blood cultures were negative. The urine has gram-positive cocci. RADIOLOGY PROCEDURES: No evidence of renal artery stenosis. CT scan of the abdomen and pelvis: Soft tissue hematoma noted on the left side. Otherwise no significant changes noted. Chest x-ray with left rib series: No acute disease noted. No acute bony fracture identified. Chest x-ray: Central line. Right IJ. DISCHARGE INSTRUCTIONS: 1. Discontinue right IJ. 2. Follow up in my office in 10 days. DISCHARGE MEDICATIONS: Macrobid 100 p.o. b.i.d., Zanaflex 4 mg daily, temazepam 15 daily, Lasix 40 daily, Celebrex 200 daily. Hold the Plavix until I see her in the office for 10 days. Cordarone 200 daily, pravastatin 40 daily, Synthroid 50 mcg daily. Hold the blood pressure medicine. Icar C Plus 1 tablet daily. cc: Ben Kay MD
== END 2016-12-23 09:44 | disposition home or self-care (01) ==
LOC: ED 10:31 → ICU 15:16 → 3N 12-18 12:29
PROVIDERS: ADMIT Internal Medicine; ATTEND Internal Medicine